=== PATIENT | female | born 1940 | race Caucasian/White ===

== ENCOUNTER 2017-01-26 09:45 | Outpatient (CLI) | payer MEDICARE, MEDICAID | END 2017-01-26 09:46 | disposition home or self-care (01) | DX: M54.5 Low back pain (principal); Z89.519 Acquired absence of unspecified leg below knee | CPT/HCPCS: 80307; G0480 ==

== ENCOUNTER 2017-09-30 08:00 | Outpatient (CLI) | payer MEDICARE, MEDICAID ==
[2017-10-03 22:06] LABS: AMPHETAMINES NEGATIVE ng/mL (< 500); BARBITURATES NEGATIVE ng/mL (< 300); BENZODIAZEPINES NEGATIVE ng/mL (< 100); CREATININE 50.6 mg/dL (>= 20.0); MARIJUANA METABOLITE NEGATIVE ng/mL (< 20); MEDMATCH AMPHETAMINES CONSISTENT (-); MEDMATCH BARBITURATES CONSISTENT (-); MEDMATCH BENZODIAZEPINES CONSISTENT (-); MEDMATCH COCAINE METAB CONSISTENT (-); MEDMATCH CODEINE CONSISTENT (-); MEDMATCH HYDROCODONE CONSISTENT; MEDMATCH HYDROMORPHONE CONSISTENT; MEDMATCH MARIJUANA METAB CONSISTENT (-); MEDMATCH METHADONE METAB CONSISTENT (-); MEDMATCH MORPHINE CONSISTENT (-); MEDMATCH NORHYDROCODONE CONSISTENT; MEDMATCH OXYCODONE CONSISTENT (-); MEDMATCH PHENCYCLIDINE CONSISTENT (-); METHADONE METABOLITE NEGATIVE ng/mL (< 100); NORHYDROCODONE 511 ng/mL (< 50); OPIATES POSITIVE ng/mL (< 100); OXIDANT Negative mcg/mL (< 200); PHENCYCLIDINE NEGATIVE ng/mL (< 25); PRESCRIBED DRUG 1 Hydrocodone
== END 2017-09-30 08:01 | disposition home or self-care (01) ==
LOC: LAB.R 08:00
PROVIDERS: ATTEND Nurse Practitioner Family
DX: Z79.891 Long term (current) use of opiate analgesic (principal); Z89.519 Acquired absence of unspecified leg below knee; G89.21 Chronic pain due to trauma; M54.5 Low back pain
CPT/HCPCS: 80307

== ENCOUNTER 2018-02-25 12:30 | Outpatient (CLI) | payer MEDICARE, MEDICAID ==
[2018-02-25 17:43] LABS: MUDS CUTOFF CONCENTRATIONS CUTOFF CONC BELOW:
[2018-02-25 18:09] LABS: OPIATE SCREEN, URINE POSITIVE (NEGATIVE)
[2018-02-25 18:10] LABS: AMPHETAMINE SCREEN,URINE NEGATIVE (NEGATIVE); BENZODIAZEPINES SCREEN, URINE NEGATIVE (NEGATIVE); COCAINE SCREEN URINE NEGATIVE (NEGATIVE); METHADONE SCREEN, URINE NEGATIVE (NEGATIVE); METHAMPHETAMINES SCREEN, URINE NEGATIVE (NEGATIVE); OXYCODONE SCREEN, URINE NEGATIVE (NEGATIVE); PROPOXYPHENE SCREEN, URINE NEGATIVE (NEGATIVE); TRICYCLIC ANTIDEPRESSANT,URINE POSITIVE (NEGATIVE)
== END 2018-02-25 12:31 | disposition home or self-care (01) ==
LOC: LAB.R 12:30
PROVIDERS: ATTEND Nurse Practitioner Family
DX: M54.5 Low back pain (principal)
CPT/HCPCS: 80306

== ENCOUNTER 2018-09-23 12:39 | Outpatient (CLI) | payer MEDICARE, MEDICAID | END 2018-09-23 12:40 | disposition critical access hospital (66) | LOC: EMS 12:39 | PROVIDERS: ATTEND Surgery | DX: R32 Unspecified urinary incontinence (principal); R41.0 Disorientation, unspecified; R10.9 Unspecified abdominal pain; M25.522 Pain in left elbow; R06.02 Shortness of breath | CPT/HCPCS: A0425; A0429 ==

== ENCOUNTER 2018-09-23 13:14 | Inpatient (IN) | payer MEDICARE, MEDICAID ==
[2018-09-23] MEDS ORDERED: cefTRIAXone 1 GM in SODIUM CHLORIDE 0.9% MINIBAG 100 ML IV STA (13:50)
[2018-09-23 14:14] LABS: BASOPHILS % (AUTO) 0.4 %; EOSINOPHILS # (AUTO) 0.2 10^3/uL (0.0-0.7); HGB - HEMOGLOBIN 10.8 g/dL (12.0-16.0); LYMPHOCYTES # (AUTO) 0.8 10^3/uL (1.5-3.5); LYMPHOCYTES % (AUTO) 7.9 %; MEAN CORPUSCULAR HGB CONC 33.8 g/dL (32.0-36.0); MEAN CORPUSCULAR VOLUME 88.9 fL (81.0-99.0); MEAN PLATELET VOLUME 9.1 fL (7.9-10.8); MONOCYTES # (AUTO) 0.8 10^3/uL (0.0-1.0); MONOCYTES % (AUTO) 7.9 %; NEUTROPHILS # (AUTO) 8.2 10^3/uL (1.5-6.6); NEUTROPHILS % (AUTO) 81.8 %; PLT - PLATELET COUNT 168 10^3/uL (130-450); RED CELL DISTRIBUTION WIDTH 15.6 % (12.0-15.0)
[2018-09-23 14:27] LABS: ALBUMIN 3.3 g/dL (3.2-5.5); ALBUMIN/GLOBULIN RATIO 1.1 (1.0-2.2); BILIRUBIN,TOTAL 0.9 mg/dL (0.2-1.0); CALCIUM 8.2 mg/dL (8.5-10.3); CREATININE 0.6 mg/dL (0.4-1.0); TOTAL PROTEIN 6.2 g/dL (6.7-8.2)
[2018-09-23 15:01] LABS: BILIRUBIN,URINE NEGATIVE (NEGATIVE); GLUCOSE, URINE (UA) NEGATIVE (NEGATIVE); KETONES,URINE (UA) 15 mg/dL (NEGATIVE); LEUKOCYTE ESTERASE, URINE MODERATE (NEGATIVE); NITRITE,URINE NEGATIVE (NEGATIVE); OCCULT BLOOD,URINE TRACE-INTA (NEGATIVE); PROTEIN,URINE TRACE mg/dL (NEGATIVE); UROBILINOGEN,URINE 1 (NORMAL) E.U./dL (NORMAL)
[2018-09-23 15:02] LABS: CLARITY,URINE HAZY (CLEAR)
[2018-09-23 15:16] LABS: BACTERIA,URINE Few /HPF (None Seen); MUCUS,URINE Few Strands; RBC,URINE 0-5 /HPF (0-5); SQUAMOUS EPITHELIAL CELL,UR MANY Squamous (<= Few)
[2018-09-23] MEDS ORDERED: NITROFURANTOIN MACRO 100 MG CAPSULE PO STA (16:19)
[2018-09-23] MEDS ORDERED: PHENAZOPYRIDINE 100 MG TABLET PO STA (16:19)
--- NOTE | 2018-09-23 16:36 | ED Physician Documentation ---
History of Present Illness - Stated complaint Stated Complaint: FEMALE - Chief complaint Chief Complaint: General - History obtained from History obtained from: Patient, Family (sister) - Additonal information Additional information: The patient is a 78-year-old female who arrives via ambulance after experiencing incontinence of urine today. The patient lives with her sister, who states that the patient has also been mentally confused today. She is normally cognitively clear. She has had no vomiting, diarrhea, fever, and denies dysuria. She denies chest pain, cough, or shortness of breath. 5 days ago the patient slipped on the floor impacting her left elbow. She had an abrasion on her left elbow, and there was swelling and ecchymosis. Yesterday she began experiencing increased redness and pain, which is even worse today. Review of Systems Constitutional: denies: Fever Ears: denies: Tinnitus/ringing Nose: denies: Congestion Throat: denies: Sore throat Cardiac: denies: Chest pain / pressure Respiratory: denies: Dyspnea, Cough GI: denies: Abdominal Pain, Nausea, Vomiting : reports: Incontinent. denies: Dysuria Skin: reports: Abrasion (s) (left elbow) Musculoskeletal: reports: Extremity pain (left upper extremity) Neurologic: reports: Generalized weakness, Confused. denies: Focal weakness, Numbness, Headache PD PAST MEDICAL HISTORY - Past Medical History Past Medical History: Yes Cardiovascular: None Respiratory: Pneumonia Endocrine/Autoimmune: None GI: GERD, GI bleed, Ulcers : Kidney stones Psych: Depression Musculoskeletal: Chronic back pain Derm: Rosacea - Past Surgical History Past Surgical History: Yes General: Cholecystectomy, Colonoscopy, EGD Ortho: Spine surgery - Present Medications Home Medications: Ambulatory Orders Medication Instructions Recorded Confirmed Amitriptyline [Elavil] 100 mg PO TID 05/18/16 05/19/16 Hydrocodone/Acetaminophen 1 tab PO Q4HR PRN 05/18/16 05/18/16 [Hydrocodon-Acetaminophn 10-325] Triamcinolone Acetonide [Nasacort] 1 spray TAYLER BID 05/18/16 05/18/16 raNITIdine [Zantac] 300 mg PO BID 05/19/16 05/19/16 traZODone [Desyrel] 150 mg PO HS 05/19/16 05/19/16 Esomeprazole Magnesium [Nexium] 40 mg PO DAILY #14 capsule. 06/07/16 Ondansetron Odt [Zofran] 4 mg TL Q6H PRN #10 tablet 06/07/16 Sucralfate 1 gm PO ACHS #60 tablet 06/07/16 - Allergies Allergies/Adverse Reactions: Allergies Allergy/AdvReac Type Severity Reaction Status Date / Time No Known Drug Allergies Allergy Verified 09/23/18 13:34 - Social History Does the pt smoke?: No Smoking Status: Never smoker Does the pt drink ETOH?: No Does the pt have substance abuse?: No - Immunizations Immunizations are current?: Yes PD ED PE NORMAL - Vitals Vital signs reviewed: Yes (hypertensive) - General General: Well developed/nourished, Other (Alert, but confused. She has vague symptoms of delirium, expressing concern that the letters on the medical glove boxes have some connection with the beeping sound on the monitor.) - HEENT HEENT: Atraumatic, EOMI, Pharynx benign, Other (Dry buccal mucosa.) - Neck Neck: Supple, no meningeal sign, No adenopathy, No JVD - Cardiac Cardiac: RRR, No murmur - Respiratory Respiratory: No respiratory distress, Clear bilaterally - Abdomen Abdomen: Soft, Other (Mild suprapubic tenderness to palpation, without rebound or guarding.) - Back Back: No CVA TTP - Derm Derm: No rash - Extremities Extremities: Other (There is erythema of the left upper extremity extending from above the elbow, distally to the distal forearm. It is warm to touch, and tender to palpation. There is superficial abrasion on the extensor aspect of the elbow. Distal neurovascular is intact.) - Neuro Neuro: No motor deficit, No sensory deficit, Other (Alert, oriented x2, mentally confused.) Eye Opening: Spontaneous Motor: Obeys Commands Verbal: Confused GCS Score: 14 Results - Vitals Vitals: Vital Signs - 24 hr 09/23/18 13:26 Temperature 36.0 C L Heart Rate 89 Respiratory 26 H Rate Blood Pressure 160/103 H O2 Saturation 100 Oxygen O2 Source [With Activity] Nasal cannula O2 Source [Without Activity] Nasal cannula O2 Source Room air - Labs Labs: Laboratory Tests 09/23/18 09/23/18 09/23/18 14:00 14:00 14:00 WBC 10.0 RBC 3.60 L Hgb 10.8 L Hct 32.0 L MCV 88.9 MCH 30.0 MCHC 33.8 RDW 15.6 H Plt Count 168 MPV 9.1 Neut # (Auto) 8.2 H Lymph # (Auto) 0.8 L [place] # (Auto) 0.8 Eos # (Auto) 0.2 Baso # (Auto) 0.0 Absolute Nucleated RBC 0.00 Nucleated RBC % 0.0 Sodium 139 Potassium 4.3 Chloride 108 Carbon Dioxide 27 Anion Gap 4.0 L BUN 20 Creatinine 0.6 Estimated GFR (MDRD) 97 Glucose 95 Lactic Acid 0.7 Calcium 8.2 L Total Bilirubin 0.9 AST 23 ALT 18 Alkaline Phosphatase 63 Total Protein 6.2 L Albumin 3.3 Globulin 2.9 Albumin/Globulin Ratio 1.1 Lipase 18 L Urine Color Urine Clarity Urine pH Ur Specific [place] Urine Protein Urine Glucose (UA) Urine Ketones Urine Occult Blood Urine Nitrite Urine Bilirubin Urine Urobilinogen Ur Leukocyte Esterase Urine RBC Urine WBC Ur Squamous Epith Cells Urine Bacteria Urine Mucus Ur Microscopic Review Urine Culture Comments 09/23/18 14:12 WBC RBC Hgb Hct MCV MCH MCHC RDW Plt Count MPV Neut # (Auto) Lymph # (Auto) [place] # (Auto) Eos # (Auto) Baso # (Auto) Absolute Nucleated RBC Nucleated RBC % Sodium Potassium Chloride Carbon Dioxide Anion Gap BUN Creatinine Estimated GFR (MDRD) Glucose Lactic Acid Calcium Total Bilirubin AST ALT Alkaline Phosphatase Total Protein Albumin Globulin Albumin/Globulin Ratio Lipase Urine Color YELLOW Urine Clarity HAZY Urine pH 6.0 Ur Specific [place] >=1.030 H Urine Protein TRACE Urine Glucose (UA) NEGATIVE Urine Ketones 15 H Urine Occult Blood TRACE-INTA Urine Nitrite NEGATIVE Urine Bilirubin NEGATIVE Urine Urobilinogen 1 (NORMAL) Ur Leukocyte Esterase MODERATE H Urine RBC 0-5 Urine WBC 11-25 H Ur Squamous Epith Cells MANY Squamous H Urine Bacteria Few Urine Mucus Few Strands Ur Microscopic Review INDICATED Urine Culture Comments NOT INDICATED PD MEDICAL DECISION MAKING - ED course Complexity details: reviewed old records, reviewed results, re-evaluated patient, considered differential, d/w patient, d/w family, d/w international travel consultant ED course: The patient's presentation is significant for cellulitis of the left upper extremity, urinary tract infection, and mental confusion. I suspect the confusion is related to the infection. She does not appear septic, and her lactate level is 0.7 and her white count is normal at 10.0. Treatment in the emergency department included administration of ceftriaxone 1 g IV. I discussed her condition with Dr. Kidd, who accepts her for further evaluation and treatment. Departure - Departure Disposition: ED Place in Observation Clinical Impression: Cellulitis Qualifiers: Site of cellulitis: extremity Site of cellulitis of extremity: upper extremity Laterality: left Qualified Code(s): L03.114 - Cellulitis of left upper limb UTI (urinary tract infection) Qualifiers: Urinary tract infection type: acute cystitis Hematuria presence: without hematuria Qualified Code(s): N30.00 - Acute cystitis without hematuria Altered mental state Qualifiers: Altered mental status type: unspecified Qualified Code(s): R41.82 - Altered mental status, unspecified
[2018-09-23] MEDS ORDERED: SODIUM CHLORIDE 0.9% 1,000 ML IV ONE (16:50)
[2018-09-23] MEDS ORDERED: SODIUM CHLORIDE FLUSH 0.9% 10 ML SYRINGE IVP PRN (17:06)
--- NOTE | 2018-09-23 18:10 | CT Report ---
Reason: New confusion Procedure Date: 09/23/2018 Accession Number: [id number] / [id number] Procedure: CT - Head W/O CPT Code: FULL RESULT: EXAM: CT HEAD EXAM DATE: 09/23/2018 05:49 PM. CLINICAL HISTORY: New confusion. COMPARISON: HEAD W/O 05/17/2016 6:54 PM. TECHNIQUE: Multiaxial CT images were obtained from the foramen magnum to the vertex. Reformats: Sagittal and coronal. IV contrast: None. In accordance with CT protocol optimization, one or more of the following dose reduction techniques were utilized for this exam: automated exposure control, adjustment of mA and/or KV based on patient size, or use of iterative reconstructive technique. FINDINGS: Parenchyma: No intraparenchymal hemorrhage. No evidence of mass, midline shift, or CT findings of infarction. Noonan-white differentiation is distinct. Extraaxial Spaces: No subdural or epidural collections identified. Ventricles: Normal in size and position. Sinuses and Orbits: There is a trace amount of fluid in the left sphenoid sinus. Other sinuses appear clear. Bones: No evidence of fracture or calvarial defect. Other: None. IMPRESSION: Negative for an acute or focal intracranial abnormality. Trace fluid in left sphenoid sinus. RADIA
[2018-09-23] MEDS: LACTATED RINGERS 1,000 ML IV SCH (19:17)
[2018-09-23] MEDS: PREGABALIN 100 MG CAPSULE PO SCH (19:20)
[2018-09-23] MEDS: PREGABALIN 25 MG CAPSULE PO SCH (19:20)
[2018-09-23] MEDS: FAMOTIDINE 20 MG/50 ML 50 ML IV SCH (20:55)
--- NOTE | 2018-09-23 20:56 | HISTORY & PHYSICAL EXAMINATION ---
DATE OF SERVICE: 09/23/2018 Physician: Poly Kidd MD HISTORY OF PRESENT ILLNESS: This is a 78-year-old white female with a history of chronic pain, for which she is on Elavil, Tylenol with codeine, Lyrica. She also takes Seroquel and Desyrel for unknown diagnosis and takes iron gluconate. 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 The patient lives with her sister, is unmarried. The patient sustained a fall in her house 4 days ago, tripping over a rug and does not think that she had any syncope. Two days later, there started to be swelling of the left elbow radiating down to the left wrist and became so painful that she could not do activities of daily living, describes at one point being unable to support herself and "scooching on her buttocks to get onto the bathtub and being too weak to get up." She called for her sister who called 911. The patient was found to have cellulitis of the left forearm in the emergency room. Also the sister described that today, the patient is very confused. In fact, the patient admits that she cannot remember part of yesterday and today is only oriented to person as I speak to her. There has been no fever. There are no pulmonary symptoms. She denies nausea, vomiting or diarrhea, chest pain, palpitations or syncope. The patient did not seek medical attention for the trauma to the left elbow. MEDICATIONS: 1. Amitriptyline 100 mg daily. 2. Baclofen 10 mg t.i.d. 3. Iron 324 mg daily. 4. Tylenol with codeine p.r.n. daily. 5. Seroquel 25 mg every evening. 6. Trazodone 225 mg daily. 7. Triamcinolone ointment topically q.i.d. p.r.n. 8. Lyrica 150 mg t.i.d. ALLERGIES: NONE. SOCIAL HISTORY: The patient is a nonsmoker, drinks no alcohol and uses no illicit drugs. REVIEW OF SYSTEMS: A comprehensive review of systems was performed by asking the patient and chart review and the pertinent positives are listed in the HPI, the rest are negative. FAMILY HISTORY: No inherited diseases. PHYSICAL EXAMINATION GENERAL: White female who is fidgety, very focused on her right palm which she says is "burning." VITAL SIGNS: Blood pressure 160/103, pulse of 89 in sinus rhythm, afebrile, room air saturation 100%. HEENT: Reveals very dry oral mucosa and sunken orbits. NECK: Without JVD or carotid bruits. LUNGS: Clear. HERAT: Sounds normal. No murmur. ABDOMEN: Soft with decreased bowel sounds, nontender. No organomegaly. EXTREMITIES: No clubbing or cyanosis or left leg edema. The right lower leg is a prosthesis. The left arm has redness, swelling and tenderness from the elbow extending anteriorly down the entire forearm to the mid dorsal hand. She is able to bend her left wrist. The right palm is red but has no swelling or tenderness. NEUROLOGIC: She is oriented to self only, moving all extremities. LABORATORY AND IMAGING: Head CT showed no acute process such as hemorrhage, mass or stroke. She does have fluid in her sinuses. Sodium 139, potassium 4.3, BUN 20, creatinine 0.6. Lactic acid normal at 0.7. Liver tests normal. Lipase normal. White blood count 10 but she has a left shift, hemoglobin 10.8 with a normal MCV, normal platelet count of 168. Urinalysis showed specific gravity greater than 1.030, high ketones, moderate leukocyte esterase, many squamous cells and few bacteria. Chest x-ray and elbow XRay were not done. INR was not done. EKG was not done. IMPRESSION: 1. Altered mental status. 2. Cellulitis. 3. Possible urinary tract infection. 4. Hypertension. PLAN: Place the patient to Observation status on telemetry. Obtain a head CT, this has now be done as she was coming over from the ER. Stop her sedatives in case they are adding to the confusion. Begin IV hydration and treatment of the infection. Culture her urine. Rocephin was started in the ER. She will have blood cultures and then daily Rocephin IV. Treat the arm with ice wraps and elevation. Continue with treatment for pain control. Follow her CBC and BMP daily. CODE STATUS: DNR. PROPHYLAXIS: SCDs. ATTESTATION: The patient is expected to be discharged or transferred to another facility within 96 hours: Yes. TD: 09/23/2018 19:10 [facility]
[2018-09-24 01:27] LABS: BILIRUBIN,URINE NEGATIVE (NEGATIVE); GLUCOSE, URINE (UA) NEGATIVE (NEGATIVE); KETONES,URINE (UA) 40 mg/dL (NEGATIVE); LEUKOCYTE ESTERASE, URINE NEGATIVE (NEGATIVE); NITRITE,URINE NEGATIVE (NEGATIVE); OCCULT BLOOD,URINE NEGATIVE (NEGATIVE); PH,URINE 6.5 PH (5.0-7.5); PROTEIN,URINE NEGATIVE (NEGATIVE); UROBILINOGEN,URINE 1 (NORMAL) E.U./dL (NORMAL)
[2018-09-24 01:29] LABS: CLARITY,URINE CLEAR (CLEAR)
[2018-09-24] MEDS ORDERED: HYDROcod/ACETAM 5/325 MG TABLET PO PRN (02:20)
[2018-09-24] MEDS: KETOROLAC 15 MG/ML VIAL IVP PRN ×3 (03:01→15:27)
[2018-09-24] MEDS: SODIUM CHLORIDE FLUSH 0.9% 10 ML SYRINGE IVP SCH ×3 (03:41→15:30)
[2018-09-24] MEDS: ACETAMINOPHEN 500 MG TABLET PO PRN ×2 (04:41→08:25)
[2018-09-24 05:28] LABS: BASOPHILS # (AUTO) 0.1 10^3/uL (0.0-0.1); BASOPHILS % (AUTO) 0.7 %; EOSINOPHILS # (AUTO) 0.2 10^3/uL (0.0-0.7); EOSINOPHILS % (AUTO) 2.8 %; HGB - HEMOGLOBIN 11.1 g/dL (12.0-16.0); LYMPHOCYTES # (AUTO) 1.2 10^3/uL (1.5-3.5); LYMPHOCYTES % (AUTO) 15.1 %; MEAN CORPUSCULAR HEMOGLOBIN 30.1 pg (27.0-31.0); MEAN CORPUSCULAR HGB CONC 33.8 g/dL (32.0-36.0); MEAN CORPUSCULAR VOLUME 88.9 fL (81.0-99.0); MEAN PLATELET VOLUME 8.9 fL (7.9-10.8); MONOCYTES # (AUTO) 0.8 10^3/uL (0.0-1.0); MONOCYTES % (AUTO) 10.4 %; NEUTROPHILS # (AUTO) 5.7 10^3/uL (1.5-6.6); PLT - PLATELET COUNT 181 10^3/uL (130-450); RED BLOOD COUNT 3.68 10^6/uL (4.20-5.40); RED CELL DISTRIBUTION WIDTH 15.3 % (12.0-15.0); WHITE BLOOD COUNT 8.1 x10^3/uL (4.8-10.8)
[2018-09-24] MEDS: PREGABALIN 25 MG CAPSULE PO SCH ×3 (05:35→21:19)
[2018-09-24] MEDS: PREGABALIN 100 MG CAPSULE PO SCH ×3 (05:35→21:19)
[2018-09-24] MEDS: LACTATED RINGERS 1,000 ML IV SCH ×2 (05:37→16:40)
[2018-09-24 05:44] LABS: CALCIUM 8.9 mg/dL (8.5-10.3); CREATININE 0.7 mg/dL (0.4-1.0)
[2018-09-24] MEDS: FAMOTIDINE 20 MG/50 ML 50 ML IV SCH ×2 (08:25→21:18)
[2018-09-24] MEDS: POLYETHYLENE GLYCOL 3350 17 GM PACKET PO SCH (08:25)
[2018-09-24] MEDS ORDERED: SODIUM CHLORIDE FLUSH 0.9% 10 ML SYRINGE ONE (14:03)
[2018-09-24] MEDS ORDERED: cefTRIAXone 1 GM VIAL ONE (14:03)
[2018-09-24] MEDS: cefTRIAXone 1 GM in SODIUM CHLORIDE 0.9% MINIBAG 100 ML IV SCH (14:20)
--- NOTE | 2018-09-24 14:38 | XRAY Report ---
Reason: Fall on L elbow sev days ago w/swelling laceration Procedure Date: 09/24/2018 Accession Number: [id number] / [id number] Procedure: XR - Elbow 3 View LT CPT Code: FULL RESULT: EXAM: LEFT ELBOW RADIOGRAPHY EXAM DATE: 09/24/2018 01:53 PM. CLINICAL HISTORY: Fall on L elbow days ago w/swelling laceration. COMPARISON: None available. TECHNIQUE: 3 views. FINDINGS: Bones: No acute fracture or dislocation. Joints: No joint effusion. Joint spaces are intact. Soft Tissues: Generalized soft tissue subcutaneous swelling IMPRESSION: No acute fracture or dislocation visualized. RADIA
--- NOTE | 2018-09-24 14:55 | PROVIDER PROGRESS NOTE ---
Assessment/Plan - Problem List (1) Altered mental state Qualifiers: Altered mental status type: unspecified Qualified Code(s): R41.82 - Altered mental status, unspecified Assessment/Plan: Pt still fatigued. Cannot remember details of past few days. Social Work has tried to reach the sister, with whom the patient lives, but there is no answer and voice messages were left. AMS is probably multi-factorial: from dehydration and infections. Continue iv fluid hydration and treatment of infections with iv antibiotics. Will start PT tomorrow if her mental status has cleared . (2) Cellulitis Qualifiers: Site of cellulitis: extremity Site of cellulitis of extremity: upper extrem ity Laterality: left Qualified Code(s): L03.114 - Cellulitis of left upper limb Assessment/Plan: Elbow appears less inflammed. Continue antibiotics and local symptomatic care. (3) UTI (urinary tract infection) Qualifiers: Urinary tract infection type: acute cystitis Hematuria presence: without hematuria Qualified Code(s): N30.00 - Acute cystitis without hematuria Assessment/Plan: Continue empiric iv antibiotics. (4) Hypokalemia Assessment/Plan: Resolving with replacement. I suspect poor po intake was the cause. (5) Dehydration Assessment/Plan: Continue iv hydration and start to encourage po intake and advancement of diet. - Current Meds Current Meds: Current Medications Generic Name Dose Route Start Last Admin Trade Name Freq PRN Reason Stop Dose Admin Acetaminophen 500 mg 09/24/18 02:18 09/24/18 08:25 Tylenol PO 500 mg Q4HR PRN Administration Mild Pain/ Fever>38C(100.4F) Famotidine 50 mls @ 100 mls/hr 09/23/18 21:00 09/24/18 09:00 Pepcid 20 Mg/50 Ml IV Infused BID DIEGO Infusion Lactated Ringer's 1,000 mls @ 100 mls/hr 09/23/18 18:00 09/24/18 14:20 Lr IV 0 mls/hr .Q10H DIEGO Infusion Ceftriaxone Sodium 1 gm/ 100 mls @ 200 mls/hr 09/24/18 14:00 09/24/18 14:20 Sodium Chloride IV 200 mls/hr Q24H DIEGO Administration Ketorolac Tromethamine 15 mg 09/24/18 02:19 09/24/18 08:26 Toradol Inj (15mg) IVP 09/29/18 02:18 15 mg Q6HR PRN Administration Moderate PAIN Polyethylene Glycol 17 gm 09/24/18 09:00 09/24/18 08:25 Miralax PO Not Given DAILY DIEGO Pregabalin 100 mg 09/23/18 19:00 09/24/18 14:20 Lyrica PO Not Given TID DIEGO Pregabalin 50 mg 09/23/18 19:00 09/24/18 14:20 Lyrica PO Not Given TID DIEGO Sodium Chloride 10 ml 09/24/18 01:00 09/24/18 07:22 Normal Saline Flush 0.9% IVP Not Given 0100,0900,1700 DEIGO - Lab Result Fish Bone Diagrams: 09/26/18 06:30 09/26/18 06:30 - Additional Planning My Orders: My Active Orders 09/23/18 17:06 Activity Orders [RC] Routine IO [RC] IOSHIFT Initiate Bowel Care Protocol [RC] .protocol Initiate Line Care Protocol [RC] .protocol Initiate Line Care Protocol [RC] .protocol Initiate Personal Care Protoco [RC] .protocol Oxygen Therapy [RC] Routine Telemetry (24 Hour) [RC] Q4HR Vital Signs [RC] Q4HR Sodium Chloride Flush 0.9% [Normal Saline Flush 0.9%] 10 ml IVP PRN PRN Code Status [OTHERS] Routine Condition of Patient [OTHERS] Routine DVT Prophylaxis [OTHERS] Routine 09/23/18 17:09 IV Insert [RC] .ONCE 09/23/18 17:30 CULTURE, BLOOD #1 [RM] Stat 09/23/18 18:00 Lactated Ringers [Lr] 1,000 ml IV 100 mls/hr 09/23/18 19:00 Pregabalin [Lyrica] 100 mg PO TID Pregabalin [Lyrica] 50 mg PO TID 09/23/18 21:00 Famotidine 20 mg/50 ml [Pepcid 20 mg/50 ml] 50 ml IV BID 09/24/18 Evaluate and Treat OT [OT] Routine Evaluate and Treat PT [PT] Routine 09/24/18 01:00 Sodium Chloride Flush 0.9% [Normal Saline Flush 0.9%] 10 ml IVP 0100,0900,1700 09/24/18 09:00 Polyethylene Glycol 3350 [Miralax] 17 gm PO DAILY 09/24/18 14:00 cefTRIAXone [Rocephin] 1 gm Sodium Chloride 0.9% Minibag [Normal Saline 0.9% Minibag] 100 ml IV Q24H 09/24/18 Lunch DIET [Soft (Low Fiber) Diet] [DIET] 09/25/18 05:00 BMP - BASIC METABOLIC PANEL [CHEM] DAILYLAB CBC - COMP BLD CT W/AUTO DIFF [HEME] DAILYLAB Subjective - Subjective Patient Reports: Feeling Better, Other (No appetite. Cannot remember details from the past 2 days.) Objective Vital Signs: Vital Signs - 24 hr 09/23/18 09/23/18 09/23/18 15:00 16:30 18:36 Temperature 36.6 C Heart Rate 76 97 Heart Rate [ 94 Radial] Respiratory 14 14 20 Rate Blood Pressure 123/106 H 125/71 Blood Pressure 154/71 H [Right Arm] O2 Saturation 93 92 96 09/24/18 09/24/18 09/24/18 00:00 05:36 07:46 Temperature 36.8 C 36.3 C L 36.3 C L Heart Rate Heart Rate [ 89 84 81 Radial] Respiratory 18 18 18 Rate Blood Pressure Blood Pressure 136/90 H 114/84 H 135/78 H [Right Arm] O2 Saturation 97 99 98 09/24/18 13:00 Temperature 36.5 C Heart Rate Heart Rate [ 93 Radial] Respiratory 15 Rate Blood Pressure Blood Pressure 163/77 H [Right Arm] O2 Saturation 98 Oxygen O2 Source [With Activity] Nasal cannula O2 Source [Without Activity] Nasal cannula O2 Source Nasal cannula I&O (Last 24 Hrs): Intake and Output Totals x24h 09/22/18 09/23/18 09/24/18 23:59 23:59 23:59 Intake Total 250 1971.667 Output Total 1400 Balance 250 571.667 General: Alert, Oriented x3 HEENT: Other (Dry mucosa) Neck: Supple, No JVD Neuro: Non Focal Cardiovascular: Regular rate, No murmurs Respiratory: No respiratory distress, Breath sounds nml Abdomen: Normal bowel sounds, No tenderness Extremities: Other (Left leg has a BKA. Left elbow less swollen and less tender.) - Results Results: Laboratory Results WBC 8.1 x10^3/uL (4.8-10.8) 09/24/18 05:09 RBC 3.68 10^6/uL (4.20-5.40) L 09/24/18 05:09 Hgb 11.1 g/dL (12.0-16.0) L 09/24/18 05:09 Hct 32.7 % (37.0-47.0) L 09/24/18 05:09 MCV 88.9 fL (81.0-99.0) 09/24/18 05:09 MCH 30.1 pg (27.0-31.0) 09/24/18 05:09 MCHC 33.8 g/dL (32.0-36.0) 09/24/18 05:09 RDW 15.3 % (12.0-15.0) H 09/24/18 05:09 Plt Count 181 10^3/uL (130-450) 09/24/18 05:09 MPV 8.9 fL (7.9-10.8) 09/24/18 05:09 Neut # (Auto) 5.7 10^3/uL (1.5-6.6) 09/24/18 05:09 Lymph # (Auto) 1.2 10^3/uL (1.5-3.5) L 09/24/18 05:09 [place] # (Auto) 0.8 10^3/uL (0.0-1.0) 09/24/18 05:09 Eos # (Auto) 0.2 10^3/uL (0.0-0.7) 09/24/18 05:09 Baso # (Auto) 0.1 10^3/uL (0.0-0.1) 09/24/18 05:09 Absolute Nucleated RBC 0.00 x10^3/uL 09/24/18 05:09 Nucleated RBC % 0.0 /100WBC 09/24/18 05:09 Sodium 138 mmol/L (135-145) 09/24/18 05:09 Potassium 3.4 mmol/L (3.5-5.0) L 09/24/18 05:09 Chloride 106 mmol/L (101-111) 09/24/18 05:09 Carbon Dioxide 22 mmol/L (21-32) 09/24/18 05:09 Anion Gap 10.0 (6-13) 09/24/18 05:09 BUN 16 mg/dL (6-20) 09/24/18 05:09 Creatinine 0.7 mg/dL (0.4-1.0) 09/24/18 05:09 Estimated GFR (MDRD) 81 (>89) L 09/24/18 05:09 Glucose 87 mg/dL (70-100) 09/24/18 05:09 Lactic Acid 0.7 mmol/L (0.5-2.2) 09/23/18 14:00 Calcium 8.9 mg/dL (8.5-10.3) 09/24/18 05:09 Total Bilirubin 0.9 mg/dL (0.2-1.0) 09/23/18 14:00 AST 23 IU/L (10-42) 09/23/18 14:00 ALT 18 IU/L (10-60) 09/23/18 14:00 Alkaline Phosphatase 63 IU/L (42-121) 09/23/18 14:00 Total Protein 6.2 g/dL (6.7-8.2) L 09/23/18 14:00 Albumin 3.3 g/dL (3.2-5.5) 09/23/18 14:00 Globulin 2.9 g/dL (2.1-4.2) 09/23/18 14:00 Albumin/Globulin Ratio 1.1 (1.0-2.2) 09/23/18 14:00 Lipase 18 U/L (22-51) L 09/23/18 14:00 Urine Color YELLOW 09/24/18 01:10 Urine Clarity CLEAR (CLEAR) 09/24/18 01:10 Urine pH 6.5 PH (5.0-7.5) 09/24/18 01:10 Ur Specific [place] 1.025 (1.002-1.030) 09/24/18 01:10 Urine Protein NEGATIVE mg/dL (NEGATIVE) 09/24/18 01:10 Urine Glucose (UA) NEGATIVE mg/dL (NEGATIVE) 09/24/18 01:10 Urine Ketones 40 mg/dL (NEGATIVE) H 09/24/18 01:10 Urine Occult Blood NEGATIVE (NEGATIVE) 09/24/18 01:10 Urine Nitrite NEGATIVE (NEGATIVE) 09/24/18 01:10 Urine Bilirubin NEGATIVE (NEGATIVE) 09/24/18 01:10 Urine Urobilinogen 1 (NORMAL) E.U./dL (NORMAL) 09/24/18 01:10 Ur Leukocyte Esterase NEGATIVE (NEGATIVE) 09/24/18 01:10 Urine RBC 0-5 /HPF (0-5) 09/23/18 14:12 Urine WBC 11-25 /HPF (0-5) H 09/23/18 14:12 Ur Squamous Epith Cells MANY Squamous (<= Few) H 09/23/18 14:12 Urine Bacteria Few /HPF (None Seen) 09/23/18 14:12 Urine Mucus Few Strands 09/23/18 14:12 Ur Microscopic Review NOT INDICATED 09/24/18 01:10 Urine Culture Comments NOT INDICATED 09/24/18 01:10 - Procedures Procedures: Procedures TRANSFUSE NONAUT RED BLOOD CELLS IN PERIPH VEIN, PERC (05/17/16) ABX Reporting Has patient been on IV antibiotics over the past 48 hours?: Yes
[2018-09-24] MEDS ORDERED: cefTRIAXone 1 GM VIAL IVP SCH (15:00)
[2018-09-24] MEDS ORDERED: POTASSIUM CHLOR 10 MEQ/100 ML 10 MEQ/100 ML BAG IV ONE (16:00)
[2018-09-24] MEDS ORDERED: BACLOFEN 10 MG TABLET PO PRN (17:48)
[2018-09-24] MEDS: NAPROXEN 250 MG TABLET PO PRN (18:29)
[2018-09-25] MEDS: NAPROXEN 250 MG TABLET PO PRN (02:20)
[2018-09-25] MEDS: LACTATED RINGERS 1,000 ML IV SCH (02:21)
[2018-09-25] MEDS: SODIUM CHLORIDE FLUSH 0.9% 10 ML SYRINGE IVP SCH ×4 (02:28→22:15)
[2018-09-25] MEDS: PREGABALIN 25 MG CAPSULE PO SCH ×3 (06:01→22:15)
[2018-09-25] MEDS: PREGABALIN 100 MG CAPSULE PO SCH ×3 (06:01→22:15)
[2018-09-25 06:06] LABS: BASOPHILS % (AUTO) 0.5 %; EOSINOPHILS # (AUTO) 0.3 10^3/uL (0.0-0.7); EOSINOPHILS % (AUTO) 4.5 %; HGB - HEMOGLOBIN 11.3 g/dL (12.0-16.0); LYMPHOCYTES # (AUTO) 0.8 10^3/uL (1.5-3.5); LYMPHOCYTES % (AUTO) 10.7 %; MEAN CORPUSCULAR HGB CONC 33.3 g/dL (32.0-36.0); MEAN PLATELET VOLUME 9.2 fL (7.9-10.8); MONOCYTES # (AUTO) 0.6 10^3/uL (0.0-1.0); MONOCYTES % (AUTO) 8.1 %; NEUTROPHILS # (AUTO) 5.4 10^3/uL (1.5-6.6); NEUTROPHILS % (AUTO) 76.2 %; PLT - PLATELET COUNT 208 10^3/uL (130-450); RED BLOOD COUNT 3.78 10^6/uL (4.20-5.40); WHITE BLOOD COUNT 7.1 x10^3/uL (4.8-10.8)
[2018-09-25 06:23] LABS: CALCIUM 8.7 mg/dL (8.5-10.3); CREATININE 0.6 mg/dL (0.4-1.0)
[2018-09-25] MEDS: FAMOTIDINE 20 MG/50 ML 50 ML IV SCH ×2 (08:46→22:14)
[2018-09-25] MEDS: POLYETHYLENE GLYCOL 3350 17 GM PACKET PO SCH (08:46)
[2018-09-25] MEDS ORDERED: AMITRIPTYLINE 10 MG TABLET PO SCH (09:00)
[2018-09-25] MEDS ORDERED: POTASSIUM CHLOR 10 MEQ/100 ML 10 MEQ/100 ML BAG IV SCH (10:00)
[2018-09-25] MEDS ORDERED: POTASSIUM CHLORIDE 20 MEQ/15 ML UDC PO SCH (10:38)
--- NOTE | 2018-09-25 12:52 | PROVIDER PROGRESS NOTE ---
Assessment/Plan - Problem List (1) Pain of amputation stump of left lower extremity Assessment/Plan: She now recalls falling on L stump when she sis not have her prosthesis on. It was during the time she was confused and fell on her L elbow. Will MRI the stump (and add L elbow) to evaluate for osteomyelitis, as a cause of the severely altered mental status that was apparently present for several days, since the sister now tells me that she was "crazy for a while". The patient is planning on getting new padding made by her prosthetic device supplier (locally done). (2) Cellulitis Qualifiers: Site of cellulitis: extremity Site of cellulitis of extremity: upper extremity Laterality: left Qualified Code(s): L03.114 - Cellulitis of left upper limb Assessment/Plan: Improving. Continue antibiotics and local care. (3) UTI (urinary tract infection) Qualifiers: Urinary tract infection type: acute cystitis Hematuria presence: without hematuria Qualified Code(s): N30.00 - Acute cystitis without hematuria Assessment/Plan: Continue antibiotics. Will transition to po meds at discharge. (4) Hypokalemia Assessment/Plan: Resolved with replacement. (5) Dehydration Assessment/Plan: Resolved with aggressive iv hydration. She is taking a po diet and iv fluids to stop. (6) Altered mental state Qualifiers: Altered mental status type: unspecified Qualified Code(s): R41.82 - Altered mental status, unspecified Assessment/Plan: Resolved. - Current Meds Current Meds: Current Medications Generic Name Dose Route Start Last Admin Trade Name Freq PRN Reason Stop Dose Admin Acetaminophen 500 mg 09/24/18 02:18 09/24/18 08:25 Tylenol PO 500 mg Q4HR PRN Administration Mild Pain/ Fever>38C(100.4F) Baclofen 10 mg 09/24/18 17:48 09/25/18 06:38 Lioresal PO 10 mg TID PRN Administration MUSCLE SPASM Famotidine 50 mls @ 100 mls/hr 09/23/18 21:00 09/25/18 09:32 Pepcid 20 Mg/50 Ml IV Infused BID DIEGO Infusion Ceftriaxone Sodium 1 gm/ 100 mls @ 200 mls/hr 09/24/18 14:00 09/24/18 14:50 Sodium Chloride IV Infused Q24H DIEGO Infusion Ketorolac Tromethamine 15 mg 09/24/18 02:19 09/24/18 15:27 Toradol Inj (15mg) IVP 09/29/18 02:18 15 mg Q6HR PRN Administration Moderate PAIN Naproxen 250 mg 09/24/18 17:48 09/25/18 02:20 Naprosyn PO 250 mg TID PRN Administration PAIN Polyethylene Glycol 17 gm 09/24/18 09:00 09/25/18 08:46 Miralax PO Not Given DAILY DIEGO Pregabalin 100 mg 09/23/18 19:00 09/25/18 06:01 Lyrica PO 100 mg TID DIEGO Administration Pregabalin 50 mg 09/23/18 19:00 09/25/18 06:01 Lyrica PO 50 mg TID DIEGO Administration Sodium Chloride 10 ml 09/24/18 01:00 09/25/18 08:47 Normal Saline Flush 0.9% IVP Not Given 0100,0900,1700 DIEGO - Lab Result Fish Bone Diagrams: 09/26/18 06:30 09/26/18 06:30 - Additional Planning My Orders: My Active Orders 09/24/18 14:00 cefTRIAXone [Rocephin] 1 gm Sodium Chloride 0.9% Minibag [Normal Saline 0.9% Minibag] 100 ml IV Q24H 09/24/18 17:48 Baclofen [Lioresal] 10 mg PO TID PRN Naproxen [Naprosyn] 250 mg PO TID PRN 09/25/18 21:00 Amitriptyline [Elavil] 100 mg PO QPM 09/25/18 Lunch DIET [Vegetarian Diet] [DIET] 09/26/18 08:00 Lower Leg (Tib-Fib) RT W/WO [MRI] Routine Subjective - Subjective Patient Reports: Feeling Better, Other (Pain of L BKA stump.) Nursing Reports: Other (Pt does not want to put on her leg prosthesis to walk with PT, due to pain at stump.) Objective Vital Signs: Vital Signs - 24 hr 09/24/18 09/24/18 09/24/18 13:00 15:57 20:40 Temperature 36.5 C 36.5 C 36.3 C L Heart Rate [ 89 95 Brachial] Heart Rate [ 93 Radial] Respiratory 15 18 16 Rate Blood Pressure 163/77 H 145/72 H 157/79 H [Right Arm] O2 Saturation 98 99 100 09/24/18 09/25/18 23:09 06:30 Temperature 36.4 C L 36.3 C L Heart Rate [ 84 87 Brachial] Heart Rate [ Radial] Respiratory 18 17 Rate Blood Pressure 150/70 H 160/80 H [Right Arm] O2 Saturation 96 99 Oxygen O2 Source [With Activity] Nasal cannula O2 Source [Without Activity] Nasal cannula O2 Source Room air I&O (Last 24 Hrs): Intake and Output Totals x24h 09/23/18 09/24/18 09/25/18 23:59 23:59 23:59 Intake Total 250 2438.334 2326.333 Output Total 1400 Balance 250 7221.506 3148.333 General: Alert, Oriented x3 HEENT: Mucous membr. moist/pink Neck: Supple Neuro: Non Focal, Other (No longer confused, she is laughing and speaking with family members.) Cardiovascular: Regular rate, No murmurs Respiratory: No respiratory distress, Breath sounds nml Abdomen: Soft Extremities: Other (L stump has purple-red discoloration, minimal tenderness and no heat or swelling.) - Results Results: Laboratory Results WBC 7.1 x10^3/uL (4.8-10.8) 09/25/18 05:44 RBC 3.78 10^6/uL (4.20-5.40) L 09/25/18 05:44 Hgb 11.3 g/dL (12.0-16.0) L 09/25/18 05:44 Hct 34.0 % (37.0-47.0) L 09/25/18 05:44 MCV 90.0 fL (81.0-99.0) 09/25/18 05:44 MCH 30.0 pg (27.0-31.0) 09/25/18 05:44 MCHC 33.3 g/dL (32.0-36.0) 09/25/18 05:44 RDW 15.0 % (12.0-15.0) 09/25/18 05:44 Plt Count 208 10^3/uL (130-450) 09/25/18 05:44 MPV 9.2 fL (7.9-10.8) 09/25/18 05:44 Neut # (Auto) 5.4 10^3/uL (1.5-6.6) 09/25/18 05:44 Lymph # (Auto) 0.8 10^3/uL (1.5-3.5) L 09/25/18 05:44 [place] # (Auto) 0.6 10^3/uL (0.0-1.0) 09/25/18 05:44 Eos # (Auto) 0.3 10^3/uL (0.0-0.7) 09/25/18 05:44 Baso # (Auto) 0.0 10^3/uL (0.0-0.1) 09/25/18 05:44 Absolute Nucleated RBC 0.01 x10^3/uL 09/25/18 05:44 Nucleated RBC % 0.1 /100WBC 09/25/18 05:44 Sodium 138 mmol/L (135-145) 09/25/18 05:44 Potassium 3.4 mmol/L (3.5-5.0) L 09/25/18 05:44 Chloride 105 mmol/L (101-111) 09/25/18 05:44 Carbon Dioxide 21 mmol/L (21-32) 09/25/18 05:44 Anion Gap 12.0 (6-13) 09/25/18 05:44 BUN 13 mg/dL (6-20) 09/25/18 05:44 Creatinine 0.6 mg/dL (0.4-1.0) 09/25/18 05:44 Estimated GFR (MDRD) 97 (>89) 09/25/18 05:44 Glucose 80 mg/dL (70-100) 09/25/18 05:44 Lactic Acid 0.7 mmol/L (0.5-2.2) 09/23/18 14:00 Calcium 8.7 mg/dL (8.5-10.3) 09/25/18 05:44 Total Bilirubin 0.9 mg/dL (0.2-1.0) 09/23/18 14:00 AST 23 IU/L (10-42) 09/23/18 14:00 ALT 18 IU/L (10-60) 09/23/18 14:00 Alkaline Phosphatase 63 IU/L (42-121) 09/23/18 14:00 Total Protein 6.2 g/dL (6.7-8.2) L 09/23/18 14:00 Albumin 3.3 g/dL (3.2-5.5) 09/23/18 14:00 Globulin 2.9 g/dL (2.1-4.2) 09/23/18 14:00 Albumin/Globulin Ratio 1.1 (1.0-2.2) 09/23/18 14:00 Lipase 18 U/L (22-51) L 09/23/18 14:00 Urine Color YELLOW 09/24/18 01:10 Urine Clarity CLEAR (CLEAR) 09/24/18 01:10 Urine pH 6.5 PH (5.0-7.5) 09/24/18 01:10 Ur Specific [place] 1.025 (1.002-1.030) 09/24/18 01:10 Urine Protein NEGATIVE mg/dL (NEGATIVE) 09/24/18 01:10 Urine Glucose (UA) NEGATIVE mg/dL (NEGATIVE) 09/24/18 01:10 Urine Ketones 40 mg/dL (NEGATIVE) H 09/24/18 01:10 Urine Occult Blood NEGATIVE (NEGATIVE) 09/24/18 01:10 Urine Nitrite NEGATIVE (NEGATIVE) 09/24/18 01:10 Urine Bilirubin NEGATIVE (NEGATIVE) 09/24/18 01:10 Urine Urobilinogen 1 (NORMAL) E.U./dL (NORMAL) 09/24/18 01:10 Ur Leukocyte Esterase NEGATIVE (NEGATIVE) 09/24/18 01:10 Urine RBC 0-5 /HPF (0-5) 09/23/18 14:12 Urine WBC 11-25 /HPF (0-5) H 09/23/18 14:12 Ur Squamous Epith Cells MANY Squamous (<= Few) H 09/23/18 14:12 Urine Bacteria Few /HPF (None Seen) 09/23/18 14:12 Urine Mucus Few Strands 09/23/18 14:12 Ur Microscopic Review NOT INDICATED 09/24/18 01:10 Urine Culture Comments NOT INDICATED 09/24/18 01:10 - Procedures Procedures: Procedures TRANSFUSE NONAUT RED BLOOD CELLS IN PERIPH VEIN, PERC (05/17/16)
--- NOTE | 2018-09-25 14:18 | HISTORY & PHYSICAL EXAMINATION ---
DATE OF SERVICE: 09/23/2018 Physician: Poly Kidd MD ADDENDUM: Please note in the HPI and in the physical exam that the patient's BKA is on the left, not the right. In the physical exam, it should stay no clubbing or cyanosis of the right leg or edema. TD: 09/25/2018 12:58
[2018-09-25] MEDS: cefTRIAXone 1 GM in SODIUM CHLORIDE 0.9% MINIBAG 100 ML IV SCH (16:21)
[2018-09-25] MEDS ORDERED: AMITRIPTYLINE 25 MG TABLET PO SCH (21:00)
[2018-09-26] MEDS: PREGABALIN 25 MG CAPSULE PO SCH ×2 (06:19→14:25)
[2018-09-26] MEDS: PREGABALIN 100 MG CAPSULE PO SCH ×2 (06:19→14:25)
[2018-09-26 06:39] LABS: BASOPHILS % (AUTO) 0.8 %; EOSINOPHILS # (AUTO) 0.5 10^3/uL (0.0-0.7); EOSINOPHILS % (AUTO) 10.1 %; HGB - HEMOGLOBIN 11.4 g/dL (12.0-16.0); LYMPHOCYTES # (AUTO) 0.9 10^3/uL (1.5-3.5); LYMPHOCYTES % (AUTO) 20.4 %; MEAN CORPUSCULAR HEMOGLOBIN 29.2 pg (27.0-31.0); MEAN CORPUSCULAR VOLUME 88.6 fL (81.0-99.0); MEAN PLATELET VOLUME 8.2 fL (7.9-10.8); MONOCYTES # (AUTO) 0.5 10^3/uL (0.0-1.0); MONOCYTES % (AUTO) 11.6 %; NEUTROPHILS # (AUTO) 2.6 10^3/uL (1.5-6.6); NEUTROPHILS % (AUTO) 57.1 %; PLT - PLATELET COUNT 226 10^3/uL (130-450); RED BLOOD COUNT 3.92 10^6/uL (4.20-5.40); RED CELL DISTRIBUTION WIDTH 14.8 % (12.0-15.0); WHITE BLOOD COUNT 4.6 x10^3/uL (4.8-10.8)
[2018-09-26 06:49] LABS: CALCIUM 8.9 mg/dL (8.5-10.3); CREATININE 0.6 mg/dL (0.4-1.0)
[2018-09-26] MEDS: POLYETHYLENE GLYCOL 3350 17 GM PACKET PO SCH (09:00)
[2018-09-26] MEDS: SODIUM CHLORIDE FLUSH 0.9% 10 ML SYRINGE IVP SCH ×2 (09:00→14:33)
[2018-09-26] MEDS ORDERED: FAMOTIDINE 20 MG TABLET PO SCH (09:00)
[2018-09-26] MEDS ORDERED: IOPAMIDOL-370 100 ML VIAL ONE (09:05)
[2018-09-26] MEDS ORDERED: IOVERSOL 320 100 ML VIAL IVP ONE (10:28)
--- NOTE | 2018-09-26 12:33 | CT Report ---
Reason: L BKA, STUMP RED AND TENDER, EVAL FOR INFECTION Procedure Date: 09/26/2018 Accession Number: [id number] / [id number] Procedure: CT - Lower Extremity Left W/ CPT Code: FULL RESULT: EXAM: LEFT LOWER EXTREMITY CT WITH CONTRAST EXAM DATE: 09/26/2018 10:23 AM. CLINICAL HISTORY: Left below knee amputation, stump red and tender, evaluate for infection. COMPARISON: None. TECHNIQUE: Thin-section axial images were acquired of the lower extremity from the mid femoral diaphysis to the end of the left lower extremity at the site of below the knee amputation after administration of intravenous contrast. IV contrast: 100 mL of iodinated contrast. Post-processing: Coronal and sagittal reformats. Other: None. In accordance with CT protocol optimization, one or more of the following dose reduction techniques were utilized for this exam: automated exposure control, adjustment of mA and/or KV based on patient size, or use of iterative reconstructive technique. FINDINGS: Bones: There are no destructive changes to support CT diagnosis of osteomyelitis. No fracture or dislocation is identified. Joints: The visualized joint spaces are normal. Musculature: Normal. No fatty atrophy. Other: No discrete collection is identified to suggest abscess formation. There is skin thickening distally which can be seen with cellulitis. IMPRESSION: Soft tissue thickening which can be seen with cellulitis. No deep soft tissue fat stranding or abscess and no osseous destruction. RADIA
--- NOTE | 2018-09-26 12:51 | CT Report ---
Reason: L ELBOW CELLULITIS EVAL FOR OSTEO Procedure Date: 09/26/2018 Accession Number: [id number] / [id number] Procedure: CT - Upper Extremity Left W/ CPT Code: FULL RESULT: EXAM: LEFT SHOULDER CT WITH CONTRAST EXAM DATE: 09/26/2018 10:23 AM. CLINICAL HISTORY: Left elbow cellulitis; evaluate for osteo. COMPARISON: ELBOW 3 VIEW LT 09/24/2018 1:40 PM UPPER EXTREMITY LEFT W/ 09/26/2018 9:16 AM. TECHNIQUE: Thin-section axial images were acquired of the shoulder after administration of intravenous contrast. IV contrast: 100 mL of iodinated contrast. Post-processing: Coronal and sagittal reformats. Other: None. In accordance with CT protocol optimization, one or more of the following dose reduction techniques were utilized for this exam: automated exposure control, adjustment of mA and/or KV based on patient size, or use of iterative reconstructive technique. FINDINGS: Examination is limited by photon starvation, likely related to patient body habitus and inability to position the arm above the head. Bones: No fracture or osseous destruction. Joints: The glenohumeral and acromioclavicular joints are normal. No large effusions. Musculature: Normal. No fatty atrophy. Other: The visualized lungs are unremarkable. No lymphadenopathy in the visualized axilla. No abscesses or cellulitis. IMPRESSION: No osseous destruction or abscess. RADIA
[2018-09-26] MEDS: cefTRIAXone 1 GM in SODIUM CHLORIDE 0.9% MINIBAG 100 ML IV SCH (14:34)
[2018-09-26 15:54] VITALS: BP 165/80
--- NOTE | 2018-09-26 16:06 | Discharge Plan ---
Discharge Plan Disposition: 01 Home, Self Care Condition: Stable Prescriptions: Sulfamethox/Trimeth 800/160 [Bactrim Ds 800/160] 1 tab PO BID #9 Diet: Regular Activity Restrictions: Activity as Tolerated Shower Restrictions: No Assistance Devices: Wheelchair Weight Bearing: Full Weight Instruction Topics: Urinary Tract Infec Ch, Dehydration, Dehydration Rehydration Ch, ED Dehydration Prevent Ch Additional Instructions or Follow Up instructions: You were admitted with altered mental status from 1) skin and soft tissue infection of the left elbow, 2) a urinary tract infection, and 3) dehydration. A new prescription for antibiotics, to finish the course of treatment for the infections, was ordered for you. Please take these pills until they are completed. Resume your other pre-hospital medications. Stay better hydrated and eat nutritious meals containing protein, to help heal the infections. You should be seen by your PCP in follow-uo in 1-2 weeks. If you have new or worsening symptoms come to the ER. No Smoking: If you smoke, Please STOP! Call for help.
[2018-09-26] MEDS ORDERED: SULFAMETH/TRIMETH DS 800/160 MG TABLET PO ONE (16:22)
--- NOTE | 2018-10-01 20:55 | DISCHARGE SUMMARY ---
Physician: Poly Kidd MD DATE OF ADMISSION: 09/23/2018 DATE OF DISCHARGE: 09/26/2018 HISTORY OF PRESENT ILLNESS: This is a 78-year-old white female who has a history of a left BKA, depression, chronic pain, who is able to function using a prosthetic leg and a wheelchair at home. The patient was brought in by ambulance when the sister, whom she lives with, found her obtunded and reported that for several days she was becoming "crazy." She reported that the patient had fallen several times in the past few days and that she found the patient in the bathtub, calling for help because she was too weak to get out and she had put herself there after scooting on her amputated stump and hands and elbows after trauma to the left elbow. In the ER, she was found to have obtundation, cellulitis of the left elbow and a possible UTI, dehydrated and was admitted for treatment. HOSPITAL COURSE AND DISCHARGE DIAGNOSES 1. Altered mental status. The patient underwent a head CT, which showed no acute or focal intracranial abnormality. She was felt to have metabolic encephalopathy therefore from dehydration and her infections. She received IV hydration, was more alert each day, eventually able to tolerate liquids and then a solid (vegetarian) diet. 2. Cellulitis of the left upper extremity. The patient had a 1-inch gash of the left elbow and surrounding edema, redness and tenderness from the elbow down to the wrist. This was x-rayed and showed no fracture. She was treated with empiric antibiotics to cover skin organisms. Her blood culture had no growth. She was discharged to complete a course of antibiotics. 3. Urinary tract infection. Urinalysis showed moderate leukocyte esterase, many white blood cells and few bacteria. Another antibiotic was also chosen for UTI coverage. She was sent home with Bactrim DS for an additional four days for treatment of both the cellulitis and her urinary tract infection. 4. Hypokalemia. This was felt to be from poor p.o. intake, it was replaced with IV and p.o. potassium. 5. Dehydration. The patient appeared clinically dehydrated, did complain of thirst, and her urine showed a specific gravity of greater than 1.030, and it even had ketones. She was hydrated with IV fluids aggressively and then transitioned to oral liquids. 6. Pain of the amputation stump of the left lower extremity. On her final two days in the hospital, when starting physical therapy, she complained that the prosthesis caused her stump pain because she had fallen on the stump, and it was red and tender. It was imaged to look for a fracture or osteomyelitis, and that was negative. The patient reported that she is to be fitted for a new padding on her prosthesis by her supplier, who is local. 7. Depression. When she was awake enough to swallow, her antidepressant medications were resumed. 8. Chronic pain. The patient is on Baclofen and Tylenol with codeine, and these were continued when she was more awake. LABORATORY AND IMAGING: Reviewed and summarized above. ALLERGIES: NONE. MEDICATIONS AT DISCHARGE 1. Amitriptyline 100 mg daily. 2. Baclofen 10 mg t.i.d. 3. Iron 324 mg daily. 4. Tylenol with codeine p.r.n. 5. Lyrica 150 mg t.i.d. 6. Seroquel 25 mg every night. 7. Desyrel 225 mg daily. 8. Kenalog cream p.r.n. 9. Bactrim DS b.i.d. for an additional 4 days. CONDITION AT DISCHARGE: Stable. PHYSICAL EXAMINATION VITAL SIGNS: Stable. Blood pressure 160/70, heart rate 90, afebrile, room air saturation 98%. HEENT: Unremarkable. NECK: Without JVD. CHEST: Clear. HEART: Sounds normal. ABDOMEN: Soft, nontender. EXTREMITIES: Left elbow has a clean superficial laceration and no swelling of the forearm. Her left BKA stump has an ecchymosis but is not tender, and the right leg has no evidence of swelling or abnormality. NEUROLOGIC: Intact. FOLLOWUP: She is advised to see her PCP in followup in a week. CODE STATUS: DNR. Time required to complete this entire discharge, chart review, patient education, prescriptions, dictation: 60 minutes. cc: JOEY Buitrago TD: 10/01/2018 18:38 TRISH
== END 2018-09-26 17:30 | disposition home or self-care (01) | DRG 602 ==
LOC: EDUNIT# → ED 13:14 → OBS 17:06 → OBSVTOIN 09-24 14:00 → MS2 09-24 15:51
PROVIDERS: ADMIT Internal Medicine; ATTEND Internal Medicine
DX: R41.0 Disorientation, unspecified (principal); L03.114 Cellulitis of left upper limb; I10 Essential (primary) hypertension; S50.312A Abrasion of left elbow, initial encounter; W01.0XXA Fall on same level from slipping, tripping and stumbling without subsequent striking against object, initial encounter; Y92.009 Unspecified place in unspecified non-institutional (private) residence as the place of occurrence of the external cause; G93.41 Metabolic encephalopathy; R32 Unspecified urinary incontinence; R82.71 Bacteriuria; N30.00 Acute cystitis without hematuria; E86.0 Dehydration; E87.6 Hypokalemia; S51.012A Laceration without foreign body of left elbow, initial encounter; S80.12XA Contusion of left lower leg, initial encounter; W19.XXXA Unspecified fall, initial encounter; F32.9 Major depressive disorder, single episode, unspecified; G89.29 Other chronic pain; Z66 Do not resuscitate; Z99.3 Dependence on wheelchair; Z91.81 History of falling; Z89.512 Acquired absence of left leg below knee; Z79.899 Other long term (current) drug therapy
CPT/HCPCS: 36415; 51701; 70450; 80048; 80053; 81001; 81003; 83605; 83690; 83735; 85025; 87040; 87086; 96361; 96365; 96366; 96367; 96375; 96376; 99283; 99284

== ENCOUNTER 2018-11-18 11:30 | Outpatient (CLI) | payer MEDICARE, MEDICAID ==
[2018-11-18 21:34] LABS: BILIRUBIN,URINE NEGATIVE (NEGATIVE); GLUCOSE, URINE (UA) NEGATIVE (NEGATIVE); KETONES,URINE (UA) NEGATIVE (NEGATIVE); LEUKOCYTE ESTERASE, URINE LARGE (NEGATIVE); NITRITE,URINE POSITIVE (NEGATIVE); OCCULT BLOOD,URINE SMALL (NEGATIVE); PROTEIN,URINE 30 mg/dL (NEGATIVE); UROBILINOGEN,URINE 0.2 (NORMAL) E.U./dL (NORMAL)
[2018-11-18 21:38] LABS: CLARITY,URINE CLOUDY (CLEAR)
[2018-11-18 21:48] LABS: BACTERIA,URINE Many /HPF (None Seen); SQUAMOUS EPITHELIAL CELL,UR RARE Squamous (<= Few)
== END 2018-11-18 23:59 | disposition home or self-care (01) ==
LOC: LAB.R 11:30
PROVIDERS: ATTEND Nurse Practitioner Family
DX: N39.0 Urinary tract infection, site not specified (principal)
CPT/HCPCS: 81001; 87086; 87181

== ENCOUNTER 2019-08-17 13:03 | Outpatient (CLI) | payer MEDICARE, MEDICAID ==
[2019-08-17 17:11] LABS: BASOPHILS # (AUTO) 0.1 10^3/uL (0.0-0.1); BASOPHILS % (AUTO) 1.2 %; EOSINOPHILS # (AUTO) 0.4 10^3/uL (0.0-0.7); EOSINOPHILS % (AUTO) 6.2 %; HGB - HEMOGLOBIN 12.4 g/dL (12.0-16.0); LYMPHOCYTES # (AUTO) 1.2 10^3/uL (1.5-3.5); LYMPHOCYTES % (AUTO) 21.3 %; MEAN CORPUSCULAR HEMOGLOBIN 28.4 pg (27.0-31.0); MEAN CORPUSCULAR HGB CONC 30.8 g/dL (32.0-36.0); MEAN PLATELET VOLUME 12.1 fL (7.9-10.8); MONOCYTES # (AUTO) 0.6 10^3/uL (0.0-1.0); MONOCYTES % (AUTO) 10.5 %; NEUTROPHILS # (AUTO) 3.5 10^3/uL (1.5-6.6); NEUTROPHILS % (AUTO) 60.6 %; PLT - PLATELET COUNT 255 10^3/uL (130-450); RED BLOOD COUNT 4.37 10^6/uL (4.20-5.40); RED CELL DISTRIBUTION WIDTH 21.3 % (12.0-15.0); WHITE BLOOD COUNT 5.7 x10^3/uL (4.8-10.8)
[2019-08-17 17:50] LABS: CALCIUM 9.7 mg/dL (8.5-10.3); CREATININE 0.8 mg/dL (0.4-1.0)
[2019-08-17 17:54] LABS: FERRITIN 26.5 ng/mL (11.0-306.8); PLATELET ESTIMATE, MANUAL NORMAL (130-450,000) (NORMAL); PLATELET MORPHOLOGY NORMAL APPEARANCE (NORMAL)
[2019-08-17 17:57] LABS: FOLATE 21.46 ng/mL (5.90 - >24.8)
== END 2019-08-17 13:04 | disposition home or self-care (01) ==
LOC: LAB.S 13:03
PROVIDERS: ATTEND Physician Assistant Medical
DX: D64.9 Anemia, unspecified (principal); R03.0 Elevated blood-pressure reading, without diagnosis of hypertension
CPT/HCPCS: 36415; 80048; 82607; 82728; 82746; 83540; 84466; 85025

== ENCOUNTER 2020-09-02 12:08 | Inpatient (IN) | payer MEDICARE, MEDICAID ==
--- NOTE | 2020-09-02 12:39 | ED Physician Documentation ---
History of Present Illness - Stated complaint Stated Complaint: WEAKNESS - Chief complaint Chief Complaint: General - History obtained from History obtained from: Patient - Additonal information Additional information: This is a 80-year-old woman with history of potentially a CVA, chronic pain, history of multiple spinal issues with a vascular injury to the left leg necessitating a remote BKA. She lives with her sister. She comes in complaining of about 4 to 5 weeks of generalized weakness, dizzy spells where she loses her balance and shortness of breath. The dizzy spells are intermittent, but makes it hard for her to transfer from chair to bed. She is fallen many times in the last few weeks, she hit her head several x2 but she does not think she has any serious injuries. She notes bilateral arm numbness. When she does fall she has a hard time getting up because of the weakness. She also complains of shortness of breath and hacking cough which is occasional. She did have heme hemoptysis briefly a few days ago which was transient. She denies any urinary complaints. No fevers. No chest pain. She has a history of anemia and is supposed to be on iron but she says she is rarely compliant because it causes GI issues. Recently changed from Lyrica to Neurontin, she does not know the dose, to 3 times a day. Takes baclofen 4 times a day. Takes amitriptyline at night. Tylenol with codeine as needed. Seroquel and trazodone as well. Review of Systems Ten Systems: 10 systems reviewed and negative Constitutional: reports: Fatigue. denies: Weight Loss Ears: denies: Ear pain Nose: denies: Rhinorrhea / runny nose Throat: denies: Sore throat Cardiac: denies: Chest pain / pressure Respiratory: reports: Dyspnea, Cough, Hemoptysis, Wheezing GI: denies: Abdominal Pain, Nausea, Vomiting PD PAST MEDICAL HISTORY - Past Medical History Past Medical History: Yes Cardiovascular: None Respiratory: Pneumonia Neuro: None Endocrine/Autoimmune: None GI: GERD, GI bleed, Ulcers : Kidney stones HEENT: None Psych: Depression Musculoskeletal: Chronic back pain Derm: Rosacea - Past Surgical History Past Surgical History: Yes General: Cholecystectomy, Colonoscopy, EGD Ortho: Spine surgery - Present Medications Home Medications: Ambulatory Orders Medication Instructions Recorded Confirmed Amitriptyline [Elavil] 100 mg PO DAILY 05/18/16 09/23/18 Hydrocodone/Acetaminophen 0.5 - 1 tab PO DAILY PRN 05/18/16 09/23/18 [Hydrocodone-Acetamin 10-325 mg] traZODone [Desyrel] 225 mg PO DAILY 05/19/16 09/23/18 Baclofen 10 mg PO TID PRN 09/23/18 09/23/18 Ferrous Gluconate 324 mg PO DAILY 09/23/18 09/23/18 Pregabalin [Lyrica] 150 mg PO TID 09/23/18 09/23/18 QUEtiapine [SEROquel] 25 mg PO QPM 09/23/18 09/23/18 Triamcinolone 0.1% Oint [Kenalog 1 applic TOP QID PRN 09/23/18 09/23/18 0.1% Oint] Sulfamethox/Trimeth 800/160 1 tab PO BID #9 09/26/18 [Bactrim Ds 800/160] - Allergies Allergies/Adverse Reactions: Allergies Allergy/AdvReac Type Severity Reaction Status Date / Time No Known Drug Allergies Allergy Verified 09/02/20 12:12 - Social History Does the pt smoke?: No Smoking Status: Never smoker Does the pt drink ETOH?: No Does the pt have substance abuse?: No - Immunizations Immunizations are current?: Yes PD ED PE NORMAL - Vitals Vital signs reviewed: Yes - General General: Alert and oriented X 3, No acute distress - HEENT HEENT: PERRL, EOMI - Neck Neck: Supple, no meningeal sign, No bony TTP - Cardiac Cardiac: RRR, No murmur - Respiratory Respiratory: No respiratory distress, Other (Left basilar wheezes) - Abdomen Abdomen: Soft, Non tender - Back Back: No CVA TTP, No spinal TTP - Derm Derm: Normal color, Warm and dry - Extremities Extremities: Other (Left BKA with prosthesis in place. No right-sided edema or tenderness.) - Neuro Neuro: Alert and oriented X 3, No motor deficit, No sensory deficit, Normal s peech Eye Opening: Spontaneous Motor: Obeys Commands Verbal: Oriented GCS Score: 15 - Psych Psych: Normal mood, Normal affect Results - Vitals Vitals: Vital Signs - 24 hr 09/02/20 09/02/20 09/02/20 12:12 12:21 14:28 Temperature 36.1 C L 36.4 C L Heart Rate 96 88 97 Respiratory 20 20 18 Rate Blood Pressure 113/48 L 117/65 133/63 H O2 Saturation 100 99 100 09/02/20 14:50 Temperature 36.5 C Heart Rate 93 Respiratory 22 Rate Blood Pressure 136/45 H O2 Saturation Oxygen O2 Source [With Activity] Nasal cannula O2 Source [Without Activity] Nasal cannula O2 Source Room air - EKG (time done) 1245 Rate: Rate (enter#) (83) Rhythm: NSR Proctor: Normal Intervals: Normal PA QRS: Normal Ischemia: Normal ST segments Computer interpretation: Agree with computer - Labs Labs: Laboratory Tests 09/02/20 09/02/20 09/02/20 12:55 12:55 12:55 WBC 6.3 RBC 1.74 L Hgb 4.3 L* Hct 15.1 L* MCV 86.8 MCH 24.7 L MCHC 28.5 L RDW 16.3 H Plt Count 421 MPV 9.9 Neut # (Auto) 4.9 Lymph # (Auto) 0.7 L [place] # (Auto) 0.5 Eos # (Auto) 0.2 Baso # (Auto) 0.0 Absolute Nucleated RBC 0.02 Nucleated RBC % 0.3 Sodium 139 Potassium 4.2 Chloride 105 Carbon Dioxide 23 Anion Gap 11.0 BUN 25 H Creatinine 0.9 Estimated GFR (MDRD) 61 L Glucose 115 H Calcium 9.0 Iron TIBC Transferrin Total Bilirubin 0.5 AST 18 ALT 12 Alkaline Phosphatase 62 Troponin I High Sens 4.4 B-Natriuretic Peptide Total Protein 6.4 L Albumin 3.1 L Globulin 3.3 Albumin/Globulin Ratio 0.9 L Blood Type Antibody Screen Crossmatch IS Only 09/02/20 09/02/20 09/02/20 12:55 12:55 13:35 WBC RBC Hgb Hct MCV MCH MCHC RDW Plt Count MPV Neut # (Auto) Lymph # (Auto) [place] # (Auto) Eos # (Auto) Baso # (Auto) Absolute Nucleated RBC Nucleated RBC % Sodium Potassium Chloride Carbon Dioxide Anion Gap BUN Creatinine Estimated GFR (MDRD) Glucose Calcium Iron < 6 L TIBC 377 Transferrin 269 Total Bilirubin AST ALT Alkaline Phosphatase Troponin I High Sens B-Natriuretic Peptide 122 H Total Protein Albumin Globulin Albumin/Globulin Ratio Blood Type O POSITIVE Antibody Screen NEGATIVE Crossmatch IS Only See Detail - Rads (name of study) Profound anemia CT head and C-spine Radiology: EMP read contemporaneously (CT head and C-spine: No acute disease but she does have severe spinal stenosis.) CT C spine Radiology: EMP read contemporaneously (No PE, patchy GGO bilat, nonspecific, lg hiatal hernia) PD MEDICAL DECISION MAKING - ED course ED course: 80-year-old woman with the above-mentioned medical history presents with progressive weakness, balance issues, dizzy spells, multiple falls having hit her head. Bilateral arm numbness. Work-up here demonstrates profound anemia, spinal stenosis, and atypical groundglass opacity in both lungs. Coronavirus test was sent. Given the level of anemia we will admit her and I spoke with Dr. Kidd for admission. 3 units of blood were ordered here. Added on iron studies which show very low iron but normal TIBC and transferrin. Discussed with patient, she is never had upper or lower endoscopies to her knowledge. Coronavirus test added on given the findings on chest CT and also the need for admission. No antibiotics ordered since it appears to be not a bacterial pneumonia. Departure - Departure Disposition: [address] [facility] DC/Xfer Clinical Impression: Anemia Qualifiers: Anemia type: unspecified type Qualified Code(s): D64.9 - Anemia, unspecified Pneumonia Qualifiers: Pneumonia type: due to unspecified organism Laterality: bilateral Lung location: unspecified part of lung Qualified Code(s): J18.9 - Pneumonia, unspecified organism Dyspnea Qualifiers: Dyspnea type: dyspnea on exertion Qualified Code(s): R06.00 - Dyspnea, unspecified Spinal stenosis Qualifiers: Spinal region: cervical Qualified Code(s): M48.02 - Spinal stenosis, cervical region Condition: Stable
[2020-09-02 13:04] LABS: BASOPHILS % (AUTO) 0.3 %; EOSINOPHILS # (AUTO) 0.2 10^3/uL (0.0-0.7); EOSINOPHILS % (AUTO) 2.4 %; LYMPHOCYTES # (AUTO) 0.7 10^3/uL (1.5-3.5); LYMPHOCYTES % (AUTO) 11.4 %; MEAN CORPUSCULAR HEMOGLOBIN 24.7 pg (27.0-31.0); MEAN CORPUSCULAR HGB CONC 28.5 g/dL (32.0-36.0); MEAN CORPUSCULAR VOLUME 86.8 fL (81.0-99.0); MEAN PLATELET VOLUME 9.9 fL (7.9-10.8); MONOCYTES # (AUTO) 0.5 10^3/uL (0.0-1.0); MONOCYTES % (AUTO) 8.6 %; NEUTROPHILS # (AUTO) 4.9 10^3/uL (1.5-6.6); NEUTROPHILS % (AUTO) 76.8 %; PLT - PLATELET COUNT 421 10^3/uL (130-450); RED BLOOD COUNT 1.74 10^6/uL (4.20-5.40); RED CELL DISTRIBUTION WIDTH 16.3 % (12.0-15.0); WHITE BLOOD COUNT 6.3 x10^3/uL (4.8-10.8)
[2020-09-02 13:07] LABS: HGB - HEMOGLOBIN 4.3 g/dL (12.0-16.0)
[2020-09-02 13:23] LABS: ALBUMIN 3.1 g/dL (3.2-5.5); ALBUMIN/GLOBULIN RATIO 0.9 (1.0-2.2); BILIRUBIN,TOTAL 0.5 mg/dL (0.2-1.0); CREATININE 0.9 mg/dL (0.4-1.0); TOTAL PROTEIN 6.4 g/dL (6.7-8.2)
[2020-09-02] MEDS ORDERED: IOVERSOL 320 100 ML VIAL IVP ONE ×2 (13:44→15:59)
--- NOTE | 2020-09-02 14:14 | CT Report ---
PROCEDURE: HEAD WO INDICATIONS: weakness, head inj TECHNIQUE: Noncontrast 4.5 mm thick angled axial sections acquired from the foramen magnum to the vertex. For r adiation dose reduction, the following was used: automated exposure control, adjustment of mA and/or kV according to patient size. COMPARISON: 09/23/2018. FINDINGS: Image quality: Excellent. CSF spaces: Basal cisterns are patent. No extra-axial fluid collections. Ventricles, cerebral sulc i, and basal cisterns are symmetric in size and morphology. Brain: No midline shift. No intracranial masses or hemorrhage. Noonan-white matter interface is norm al. There is diffuse cortical volume loss with associated ex vacuo dilatation of the bilateral ventr icles. No acute intracranial hemorrhage or evidence of transcortical infarction. Scattered bilatera l periventricular white matter hypoattenuation likely sequela from chronic small vessel ischemic dise ase. Atherosclerotic calcifications within the intracranial segments of the bilateral internal caroti d arteries are noted. Skull and face: Calvarium and visualized facial bones are intact, without suspicious lesions. Sinuses: Visualized sinuses and mastoids are clear. IMPRESSION: CT head without acute intracranial abnormalities. No acute calvarial fractures. Stable age-related se nescent changes and sequela of chronic small vessel ischemic disease. Reviewed by: Abhijeet Trinh MD on 09/02/2020 1:12 PM [facility] Approved by: Abhijeet Trinh MD on 09/02/2020 1:12 PM [facility] Station ID: [id number]
--- NOTE | 2020-09-02 14:26 | CT Report ---
PROCEDURE: ANGIO CHEST W INDICATIONS: dyspnea, H/O DVT or arterial occlusion CONTRAST: IV CONTRAST: Optiray 320 ml: 80 PO CONTRAST: *NO PO CONTRAST TECHNIQUE: After the administration of intravenous contrast, 2 mm thick sections acquired from the pulmonary api los to the posterior costophrenic angles. 3-dimensional maximum intensity projection (MIP) coronal a nd sagittal reformats were then acquired through the thorax. For radiation dose reduction, the follow ing was used: automated exposure control, adjustment of mA and/or kV according to patient size. COMPARISON: CT abdomen pelvis 05/17/2016. FINDINGS: Image quality: Evaluation limited by motion artifact. Pulmonary arteries: Pulmonary arteries are normal in size, and demonstrate no definite intraluminal filling defects to suggest central pulmonary embolism, with evaluation of subsegmental branches limit ed by motion artifact. Lungs and pleura: There is atelectasis in the left lower lobe associated with a large hiatal hernia. Mild dependent atelectasis is also demonstrated bilaterally. There are patchy groundglass opacities b ilaterally with an upper lobe predominance. No pleural effusions or pneumothorax. Central and periph eral airways are patent. Mediastinum: Heart size is normal, without pericardial effusion. No mediastinal or hilar adenopathy . Thoracic aorta is normal in caliber and enhancement. There is a large hiatal hernia containing th e stomach as well as the transverse colon. Bones and chest wall: No suspicious bony lesions. Ribs and thoracic spine appear intact throughout. No axillary or supraclavicular adenopathy. Abdomen: Visualized upper abdomen demonstrates surgical absence of the gallbladder. A large amount o f stool is demonstrated within the visualized colon suggestive of constipation. IMPRESSION: 1. No definite central pulmonary embolism, with evaluation of subsegmental branches is limited by mot ion artifact. 2. Patchy groundglass opacities bilaterally with an upper lobe predominance. The findings are nonspec ific but suggestive of an inflammatory or infectious process such as hypersensitivity pneumonitis or atypical pneumonia. 3. Large hiatal hernia with herniation of the stomach and a segment of the transverse colon. Associat ed left lower lobe atelectasis demonstrated. Reviewed by: Hugo Valdes MD on 09/02/2020 2:25 PM PST Approved by: Hugo Valdes MD on 09/02/2020 2:25 PM PST Station ID: [id number]
--- NOTE | 2020-09-02 14:26 | CT Report ---
PROCEDURE: CERVICAL SPINE WO INDICATIONS: B arm numbness TECHNIQUE: Noncontrast 3 mm thick sections acquired from the skull base to the T4 level. Sagittal and coronal r eformats were then constructed. For radiation dose reduction, the following was used: automated exp osure control, adjustment of mA and/or kV according to patient size. COMPARISON: None. FINDINGS: Image quality: Excellent. Bones: No acute fractures or dislocations. Visualized superior ribs are intact. Moderate-severe mu ltilevel degenerative changes of the cervical spine with severe bilateral facet arthropathy at C3-4 C 4-5 and C5-6. Findings are more severe on the left. There is also disc space loss at C4-4 through C5- 6. Degenerative endplate changes and endplate osteophyte formation at these levels. Moderate spinal c anal stenosis at C3-4 and C5-6. Moderate-severe bilateral neuroforaminal narrowing at these levels. N o acute compression fractures. C1-C2 relationship is maintained. Craniocervical junction is intact. Soft tissues: Prevertebral soft tissues are normal in thickness. No paravertebral hematomas. No ap ical pneumothoraces. IMPRESSION: Cervical spine without acute fracture or location. Moderate-severe multilevel cervical spondylosis from C3-4 through C5-6 where there is spinal canal st enosis and significant neuroforaminal stenosis. Straightening of cervical lordosis. Reviewed by: Abhijeet Trinh MD on 09/02/2020 1:25 PM [facility] Approved by: Abhijeet Trinh MD on 09/02/2020 1:25 PM [facility] Station ID: [id number]
[2020-09-02] MEDS ORDERED: GABAPENTIN 100 MG CAPSULE PO STA (14:51)
[2020-09-02] MEDS ORDERED: BACLOFEN 10 MG TABLET PO STA (14:51)
[2020-09-02] MEDS ORDERED: PANTOPRAZOLE 40 MG VIAL IVP STA (14:53)
[2020-09-02 15:01] LABS: IRON < 6 ug/dL (28-170); TOTAL IRON BINDING CAPACITY 377 ug/dL (250-450); TRANSFERRIN 269 mg/dL (192-382)
--- NOTE | 2020-09-02 17:57 | PHARMACY PROGRESS NOTE ---
- Best Possible Medication History Admit Date and Time: 09/02/20 1455 Processed by: Pharmacy Medication History completed: Yes Patient Interview: Completed Secondary Source(s): Physician records, Pharmacy records, Insurance records As the person ultimately responsible for medication therapy, providers are able to order a medication from an existing home medication list in [facility] via the "Reconcile Routine" prior to Confirmation of that medication by student support advisor. Such practice is discouraged except when the physician, in their clinical judgment, deems that a medical need exists for a medication without regard to previous use.
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
[2020-09-02] MEDS: NYSTATIN POWDER 15 GM TOP SCH (22:32)
[2020-09-02] MEDS: OXYMETAZOLINE HCL 100 SPRAYS BOTTLE NAS PRN (22:32)
[2020-09-02] MEDS ORDERED: traZODone 50 MG TABLET PO SCH (22:41)
[2020-09-02] MEDS: GABAPENTIN 400 MG CAPSULE PO SCH (22:54)
[2020-09-02] MEDS: BACLOFEN 10 MG TABLET PO SCH (22:54)
[2020-09-03] MEDS: BACLOFEN 10 MG TABLET PO SCH ×3 (05:46→22:13)
[2020-09-03] MEDS: GABAPENTIN 400 MG CAPSULE PO SCH ×3 (05:46→22:13)
[2020-09-03 06:10] LABS: CALCIUM 9.2 mg/dL (8.5-10.3); CREATININE 0.7 mg/dL (0.4-1.0)
[2020-09-03 07:05] LABS: BASOPHILS # (AUTO) 0.1 10^3/uL (0.0-0.1); EOSINOPHILS # (AUTO) 0.6 10^3/uL (0.0-0.7); EOSINOPHILS % (AUTO) 8.3 %; LYMPHOCYTES % (AUTO) 14.8 %; MEAN CORPUSCULAR HGB CONC 31.5 g/dL (32.0-36.0); MEAN CORPUSCULAR VOLUME 85.7 fL (81.0-99.0); MEAN PLATELET VOLUME 10.6 fL (7.9-10.8); MONOCYTES # (AUTO) 0.9 10^3/uL (0.0-1.0); MONOCYTES % (AUTO) 12.7 %; NEUTROPHILS # (AUTO) 4.3 10^3/uL (1.5-6.6); NEUTROPHILS % (AUTO) 61.5 %; PLT - PLATELET COUNT 346 10^3/uL (130-450); RED CELL DISTRIBUTION WIDTH 15.2 % (12.0-15.0)
[2020-09-03] MEDS ORDERED: FERRIC GLUCONATE 125 MG in SODIUM CHLORIDE 0.9% 100ML 100 ML IV ONE (09:00)
[2020-09-03] MEDS: NYSTATIN POWDER 15 GM TOP SCH ×2 (09:12→20:54)
[2020-09-03] MEDS ORDERED: traZODone 50 MG TABLET PO PRN (09:17)
[2020-09-03] MEDS: PANTOPRAZOLE 40 MG TABLET PO SCH ×2 (10:56→15:52)
[2020-09-03] MEDS ORDERED: BENZOCAINE/TETRACAINE/BUTAMBEN 20 GM ONE (11:21)
[2020-09-03] MEDS ORDERED: LIDO GARGLE 30 ML BOTTLE ONE (11:22)
[2020-09-03] MEDS: OXYMETAZOLINE HCL 100 SPRAYS BOTTLE NAS PRN (11:51)
[2020-09-03] MEDS ORDERED: D5.45NS W/20 MEQ KCL 1,000 ML IV SCH ×2 (12:00→14:33)
--- NOTE | 2020-09-03 13:01 | ANESTHESIA ---
Pre-Anesthesia VS, & Labs - Diagnosis Anemia, possible GI Bleed - Procedure EGD Vital Signs: Temp Pulse Resp BP Pulse Ox 36.9 C 88 18 144/77 H 95 09/03/20 11:17 09/03/20 11:17 09/03/20 11:17 09/03/20 11:17 09/03/20 11:17 Height: 5 ft Weight (kg): 62.5 kg Body Mass Index: 26.9 BMI Classification: Overweight - NPO Last Fluid Intake: Clear liquids 0800 - Is Patient ?: No - Lab Results Current Lab Results: Laboratory Tests 09/03/20 05:23: WBC 7.0, RBC 3.70 L, Hgb 10.0 L, Hct 31.7 L, MCV 85.7, MCH 27.0, MCHC 31.5 L, RDW 15.2 H, Plt Count 346, MPV 10.6, Neut # (Auto) 4.3, Lymph # (Auto) 1.0 L, Hardee # (Auto) 0.9, Eos # (Auto) 0.6, Baso # (Auto) 0.1, Absolute Nucleated RBC 0.04, Nucleated RBC % 0.6 09/03/20 05:15: Sodium 143, Potassium 3.9, Chloride 110, Carbon Dioxide 22, Anion Gap 11.0, BUN 15, Creatinine 0.7, Estimated GFR (MDRD) 81 L, Glucose 95, Calcium 9.2 09/02/20 13:35: Blood Type O POSITIVE, Antibody Screen NEGATIVE, Crossmatch IS Only See Detail 09/02/20 12:55: Iron < 6 L, TIBC 377, Transferrin 269 09/02/20 12:55: B-Natriuretic Peptide 122 H 09/02/20 12:55: Troponin I High Sens 4.4 09/02/20 12:55: Sodium 139, Potassium 4.2, Chloride 105, Carbon Dioxide 23, Anion Gap 11.0, BUN 25 H, Creatinine 0.9, Estimated GFR (MDRD) 61 L, Glucose 115 H, Calcium 9.0, Total Bilirubin 0.5, AST 18, ALT 12, Alkaline Phosphatase 62, Total Protein 6.4 L, Albumin 3.1 L, Globulin 3.3, Albumin/Globulin Ratio 0.9 L 09/02/20 12:55: WBC 6.3, RBC 1.74 L, Hgb 4.3 L*, Hct 15.1 L*, MCV 86.8, MCH 24.7 L, MCHC 28.5 L, RDW 16.3 H, Plt Count 421, MPV 9.9, Neut # (Auto) 4.9, Lymph # (Auto) 0.7 L, Hardee # (Auto) 0.5, Eos # (Auto) 0.2, Baso # (Auto) 0.0, Absolute Nucleated RBC 0.02, Nucleated RBC % 0.3 Lab results reviewed: Yes Fish Bones: 09/03/20 05:23 09/03/20 05:15 Home Medications and Allergies Home Medications: Ambulatory Orders Amitriptyline HCl 100 mg PO QPM 09/02/20 Gabapentin [Neurontin] 800 mg PO TID 09/02/20 Losartan [Cozaar] 50 mg PO DAILY 09/02/20 Trazodone HCl 50 - 100 mg PO QPM PRN 09/02/20 Active Medications Amitriptyline HCl (Elavil) 100 mg PO QPM [facility] Baclofen (Lioresal) 10 mg PO TID [facility] Last Admin: 09/03/20 05:46 Dose: 10 mg Documented by: Ferrous Sulfate (Feosol) 325 mg PO BIDWM [facility] Gabapentin (Neurontin) 800 mg PO TID [facility] Potassium Chloride/Dextrose/Sod Cl (D5.45ns W/20 Meq Kcl) 1,000 mls @ 100 mls/hr IV .Q10H [facility] Stop: 09/04/20 07:59 Last Admin: 09/03/20 11:47 Dose: 100 mls/hr Documented by: Nystatin (Nystop) 1 applic TOP BID [facility] Last Admin: 09/03/20 09:12 Dose: 1 applic Documented by: Oxymetazoline HCl (Afrin) 2 sprays TAYLER BID PRN PRN Reason: Nasal Congestion Last Admin: 09/03/20 11:51 Dose: 2 spr Documented by: Pantoprazole Sodium (Protonix) 40 mg PO BIDAC [facility] Last Admin: 09/03/20 10:56 Dose: 40 mg Documented by: Quetiapine Fumarate (Seroquel) 25 mg PO QPM [facility] Trazodone HCl (Desyrel) 50 mg PO QPM PRN PRN Reason: Insomnia Baclofen 10 mg PO TID PRN 09/23/18 Ferrous Gluconate 324 mg PO DAILY 09/23/18 QUEtiapine [SEROquel] 25 mg PO QPM 09/23/18 Amitriptyline HCl 100 mg PO QPM 09/02/20 Gabapentin [Neurontin] 800 mg PO TID 09/02/20 Losartan [Cozaar] 50 mg PO DAILY 09/02/20 Trazodone HCl 50 - 100 mg PO QPM PRN 09/02/20 Allergies/Adverse Reactions: Allergies Allergy/AdvReac Type Severity Reaction Status Date / Time No Known Drug Allergies Allergy Verified 09/02/20 12:12 Anes History & Medical History - Anesthetic History Anesthesia Complications: reports: No previous complications - Medical History Cardiovascular: reports: None Pulmonary: reports: Pneumonia Gastrointestinal: reports: GERD, GI bleed, Ulcers Urinary: reports: Kidney stones Neuro: reports: Other (Paresthesias in brynn hands) Musculoskeletal: reports: Chronic back pain, Other (Cervical stenosis, multiple back surgeries, BKA) Endocrine/Autoimmune: reports: None Blood Disorders: reports: Anemia Skin: reports: Rosacea Smoking Status: Never smoker Psychosocial: reports: No issues indicated History of Cancer?: No - Surgical History General: Cholecystectomy, Colonoscopy, EGD Orthopedic: Spine surgery (Back surgery with rods/cages), Amputation (Left BKA) Exam General: Alert, Oriented x3, Cooperative, No acute distress Dental: Poor dentition Mouth Openin Fingerbreadth Neck Mobility: Reduced (Cervical stenosis, paresthesias in hands) Mallampati classification: III Thyromental Distance: 4-6 cm Mental/Cognitive Status: Alert/Oriented X3, Normal for patient Plan Anesthesia Type: MAC Consent for Procedure(s) Verified and Reviewed: Yes Code Status: Attempt Resuscitation ASA classification: 2-Mild systemic disease Is this case an emergency?: No
--- NOTE | 2020-09-03 13:27 | HISTORY & PHYSICAL EXAMINATION ---
Chief Complaint - Chief Complaint Chief Complaint: Dizzyness and fatigue GI Bleed Admit Template - Admitted From Admitted from: ED (80 year old with history of anemia. She denies weight loss, pain on swallowing, trouble swallowing. She has not noticed bloody or dark stool. For the last several months she has had mild right lower quadrant pain. Family history negative for intestinal or gastric pathology. She denies having p) - History Obtained From History obtained from: Patient Exam limitations: No limitations - History of Present Illness Severity at the worst: reports: Moderate Bleeding quality: reports: None Timing: reports: Gradual onset Duration: reports: Chronic Improved with: reports: Other (blood transfusion) PMH/PSH - Past Medical History Cardiovascular: positive: None Respiratory: positive: Pneumonia Neuro: positive: Other (Paresthesias in brynn hands) Endocrine/Autoimmune: positive: None GI: positive: GERD, GI bleed, Ulcers : positive: Kidney stones HEENT: positive: None Psych: positive: Depression Musculoskeletal: positive: Chronic back pain, Other (Cervical stenosis, multiple back surgeries, BKA) Derm: positive: Rosacea MRSA Hx?: No - Past Surgical History General: positive: Cholecystectomy, Colonoscopy, EGD Ortho: positive: Spine surgery (Back surgery with rods/cages), Amputation (Left BKA) Neuro: positive: Other (s) Social & Family Hx - Social History Does the pt smoke?: No Smoking Status: Never smoker Does the pt drink ETOH?: No Does the pt have substance abuse?: No - POLST Patient has POLST: No POLST Status: DNR Meds/Allgy - Home Medications Home Medications: Ambulatory Orders Medication Instructions Recorded Confirmed Baclofen 10 mg PO TID PRN 09/23/18 09/02/20 Ferrous Gluconate 324 mg PO DAILY 09/23/18 09/02/20 QUEtiapine [SEROquel] 25 mg PO QPM 09/23/18 09/02/20 Amitriptyline HCl 100 mg PO QPM 09/02/20 09/02/20 Gabapentin [Neurontin] 800 mg PO TID 09/02/20 09/02/20 Losartan [Cozaar] 50 mg PO DAILY 09/02/20 09/02/20 Trazodone HCl 50 - 100 mg PO QPM PRN 09/02/20 09/02/20 - Allergies Allergies/Adverse Reactions: Allergies Allergy/AdvReac Type Severity Reaction Status Date / Time No Known Drug Allergies Allergy Verified 09/02/20 12:12 Review of Systems - Constitutional Constitutional: reports: Fatigue (10 pt ros as above otherwise unremarkable) Exam - Vital Signs Reviewed Vital Signs: Yes Vital Signs: Vital Signs x48h Temp Pulse Resp BP Pulse Ox 09/03/20 11:17 36.9 C 88 18 144/77 H 95 09/03/20 07:45 36.6 C 87 18 160/74 H 93 - Physical Exam General Appearance: positive: No acute distress, Alert Eyes Bilateral: positive: Normal inspection, PERRL, EOMI ENT: positive: No signs of dehydration Neck: positive: No JVD, Trachea midline Respiratory: positive: No respiratory distress Extremities: positive: Other (left leg bka and prosthesis) Neurologic/Psychiatric: positive: Oriented x3 Results - Lab Results Fish Bones: 09/03/20 05:23 09/03/20 05:15 Other Lab Results: Lab Results x24hrs 09/03/20 09/03/20 09/02/20 Range/Units 05:23 05:15 14:45 WBC 7.0 (4.8-10.8) x10^3/uL RBC 3.70 L (4.20-5.40) 10^6/uL Hgb 10.0 L (12.0-16.0) g/dL Hct 31.7 L (37.0-47.0) % MCV 85.7 (81.0-99.0) fL MCH 27.0 (27.0-31.0) pg MCHC 31.5 L (32.0-36.0) g/dL RDW 15.2 H (12.0-15.0) % Plt Count 346 (130-450) 10^3/uL MPV 10.6 (7.9-10.8) fL Neut # (Auto) 4.3 (1.5-6.6) 10^3/uL Lymph # (Auto) 1.0 L (1.5-3.5) 10^3/uL [place] # (Auto) 0.9 (0.0-1.0) 10^3/uL Eos # (Auto) 0.6 (0.0-0.7) 10^3/uL Baso # (Auto) 0.1 (0.0-0.1) 10^3/uL Absolute Nucleated RBC 0.04 x10^3/uL Nucleated RBC % 0.6 /100WBC Sodium 143 (135-145) mmol/L Potassium 3.9 (3.5-5.0) mmol/L Chloride 110 (101-111) mmol/L Carbon Dioxide 22 (21-32) mmol/L Anion Gap 11.0 (6-13) BUN 15 (6-20) mg/dL Creatinine 0.7 (0.4-1.0) mg/dL Estimated GFR (MDRD) 81 L (>89) Glucose 95 (70-100) mg/dL Calcium 9.2 (8.5-10.3) mg/dL Iron (28-170) ug/dL TIBC (250-450) ug/dL Transferrin (192-382) mg/dL Total Bilirubin (0.2-1.0) mg/dL AST (10-42) IU/L ALT (10-60) IU/L Alkaline Phosphatase (42-121) IU/L Troponin I High Sens (2.3-14.8) ng/L B-Natriuretic Peptide (5-100) pg/mL Total Protein (6.7-8.2) g/dL Albumin (3.2-5.5) g/dL Globulin (2.1-4.2) g/dL Albumin/Globulin Ratio (1.0-2.2) SARS-CoV-2 (PCR) NOT DETECTED Blood Type Antibody Screen Crossmatch IS Only 09/02/20 09/02/20 09/02/20 Range/Units 13:35 12:55 12:55 WBC (4.8-10.8) x10^3/uL RBC (4.20-5.40) 10^6/uL Hgb (12.0-16.0) g/dL Hct (37.0-47.0) % MCV (81.0-99.0) fL MCH (27.0-31.0) pg MCHC (32.0-36.0) g/dL RDW (12.0-15.0) % Plt Count (130-450) 10^3/uL MPV (7.9-10.8) fL Neut # (Auto) (1.5-6.6) 10^3/uL Lymph # (Auto) (1.5-3.5) 10^3/uL [place] # (Auto) (0.0-1.0) 10^3/uL Eos # (Auto) (0.0-0.7) 10^3/uL Baso # (Auto) (0.0-0.1) 10^3/uL Absolute Nucleated RBC x10^3/uL Nucleated RBC % /100WBC Sodium (135-145) mmol/L Potassium (3.5-5.0) mmol/L Chloride (101-111) mmol/L Carbon Dioxide (21-32) mmol/L Anion Gap (6-13) BUN (6-20) mg/dL Creatinine (0.4-1.0) mg/dL Estimated GFR (MDRD) (>89) Glucose (70-100) mg/dL Calcium (8.5-10.3) mg/dL Iron < 6 L (28-170) ug/dL TIBC 377 (250-450) ug/dL Transferrin 269 (192-382) mg/dL Total Bilirubin (0.2-1.0) mg/dL AST (10-42) IU/L ALT (10-60) IU/L Alkaline Phosphatase (42-121) IU/L Troponin I High Sens (2.3-14.8) ng/L B-Natriuretic Peptide 122 H (5-100) pg/mL Total Protein (6.7-8.2) g/dL Albumin (3.2-5.5) g/dL Globulin (2.1-4.2) g/dL Albumin/Globulin Ratio (1.0-2.2) SARS-CoV-2 (PCR) Blood Type O POSITIVE Antibody Screen NEGATIVE Crossmatch IS Only See Detail 09/02/20 09/02/20 Range/Units 12:55 12:55 WBC (4.8-10.8) x10^3/uL RBC (4.20-5.40) 10^6/uL Hgb (12.0-16.0) g/dL Hct (37.0-47.0) % MCV (81.0-99.0) fL MCH (27.0-31.0) pg MCHC (32.0-36.0) g/dL RDW (12.0-15.0) % Plt Count (130-450) 10^3/uL MPV (7.9-10.8) fL Neut # (Auto) (1.5-6.6) 10^3/uL Lymph # (Auto) (1.5-3.5) 10^3/uL [place] # (Auto) (0.0-1.0) 10^3/uL Eos # (Auto) (0.0-0.7) 10^3/uL Baso # (Auto) (0.0-0.1) 10^3/uL Absolute Nucleated RBC x10^3/uL Nucleated RBC % /100WBC Sodium 139 (135-145) mmol/L Potassium 4.2 (3.5-5.0) mmol/L Chloride 105 (101-111) mmol/L Carbon Dioxide 23 (21-32) mmol/L Anion Gap 11.0 (6-13) BUN 25 H (6-20) mg/dL Creatinine 0.9 (0.4-1.0) mg/dL Estimated GFR (MDRD) 61 L (>89) Glucose 115 H (70-100) mg/dL Calcium 9.0 (8.5-10.3) mg/dL Iron (28-170) ug/dL TIBC (250-450) ug/dL Transferrin (192-382) mg/dL Total Bilirubin 0.5 (0.2-1.0) mg/dL AST 18 (10-42) IU/L ALT 12 (10-60) IU/L Alkaline Phosphatase 62 (42-121) IU/L Troponin I High Sens 4.4 (2.3-14.8) ng/L B-Natriuretic Peptide (5-100) pg/mL Total Protein 6.4 L (6.7-8.2) g/dL Albumin 3.1 L (3.2-5.5) g/dL Globulin 3.3 (2.1-4.2) g/dL Albumin/Globulin Ratio 0.9 L (1.0-2.2) SARS-CoV-2 (PCR) Blood Type Antibody Screen Crossmatch IS Only Impression/Plan - Problem List Problem List: She describes having recurrent anemia. Plan EGD Plan out patient colonoscopy She should follow up in the surgery office after discharge Parq held and consent obtained
[2020-09-03] MEDS ORDERED: fentaNYL 100 MCG/2 ML VIAL IVP ONE (13:30)
[2020-09-03] MEDS ORDERED: PROPOFOL 200 MG/20 ML VIAL IVP ONE (13:30)
[2020-09-03] MEDS ORDERED: LIDOCAINE-MPF 2% 5 ML VIAL IM ONE (13:30)
[2020-09-03 14:22] LABS: BASOPHILS % (AUTO) 0.8 %; EOSINOPHILS # (AUTO) 0.4 10^3/uL (0.0-0.7); EOSINOPHILS % (AUTO) 7.8 %; HGB - HEMOGLOBIN 8.7 g/dL (12.0-16.0); LYMPHOCYTES # (AUTO) 0.8 10^3/uL (1.5-3.5); LYMPHOCYTES % (AUTO) 15.9 %; MEAN CORPUSCULAR HEMOGLOBIN 27.7 pg (27.0-31.0); MEAN CORPUSCULAR HGB CONC 31.8 g/dL (32.0-36.0); MEAN CORPUSCULAR VOLUME 87.3 fL (81.0-99.0); MEAN PLATELET VOLUME 9.4 fL (7.9-10.8); MONOCYTES # (AUTO) 0.6 10^3/uL (0.0-1.0); MONOCYTES % (AUTO) 11.7 %; PLT - PLATELET COUNT 368 10^3/uL (130-450); RED BLOOD COUNT 3.14 10^6/uL (4.20-5.40); RED CELL DISTRIBUTION WIDTH 15.7 % (12.0-15.0); WHITE BLOOD COUNT 4.8 x10^3/uL (4.8-10.8)
--- NOTE | 2020-09-03 14:26 | ANESTHESIA POST OP EVALUATION ---
Anesthesia Post Eval - Post Anesthesia Eval Vitals: Last Vital Signs Temp 36.9 C 09/03/20 14:04 Pulse 87 09/03/20 14:04 Resp 18 09/03/20 14:15 BP 159/7 H 09/03/20 14:04 Pulse Ox 93 09/03/20 14:15 CV Function Including HR & BP: positive: Stable Pain Control: positive: Satisfactory Nausea & Vomiting: positive: Negative Mental Status: positive: Baseline Respiratory Status: Airway Patent Hydration Status: Satisfactory Anesthesia Complications: positive: None
--- NOTE | 2020-09-03 14:52 | PROVIDER PROGRESS NOTE ---
Assessment/Plan - Problem List (1) Severe anemia Assessment/Plan: 113,Patient was found to have severe anemia in the admission. Hemoglobin was 4.3. After the patient had a 3 units of blood transfusion, Hemoglobin is 8.7 now. Iron studies show patient had a severe iron deficiency, patient was give intravenous iron, continue oral iron. EGD also found the patient had a large ulcer in the gastric but not at acute bleeding now. Patient scheduled Protonix PO Twice daily. Continue H&H overnight monitor patient. if patient hemoglobin is stable, has no GI bleed, we plan to discharge patient tomorrow (2)gastric ulcer EGD by GI surgeon also found the patient had a large ulcer in the gastric but not at acute bleeding now. pt is on PPI, and carafate. per surgeon, advise pt followup with GI surgeon 4-6 weeks (2) Depression Patient is on amitriptyline (3) Hypertension stable, continue home losartan for now (4) Chronic pain disorder Conclusion/Plan: continue Patient is on gabapentin and amitriptyline. advise pt hold Aleve in the home. - Current Meds Current Meds: Current Medications Generic Name Dose Route Start Last Admin Trade Name Freq PRN Reason Stop Dose Admin Baclofen 10 mg 09/02/20 23:00 09/03/20 05:46 Lioresal PO 10 mg TID DIEGO Administration Potassium Chloride/Dextrose/Sod Cl 1,000 mls @ 83.3 mls/hr 09/03/20 14:33 09/03/20 14:46 D5.45ns W/20 Meq Kcl IV 09/04/20 02:33 83.3 mls/hr .Q12H1M DIEGO Administration Nystatin 1 applic 09/02/20 23:00 09/03/20 09:12 Nystop TOP 1 applic BID DIEGO Administration Oxymetazoline HCl 2 sprays 09/02/20 22:15 09/03/20 11:51 Afrin TAYLER 2 spr BID PRN Administration Nasal Congestion Pantoprazole Sodium 40 mg 09/03/20 10:15 09/03/20 10:56 Protonix PO 40 mg BIDAC DIEGO Administration - Lab Result Fish Bone Diagrams: 09/03/20 14:17 09/03/20 05:15 - Additional Planning My Orders: My Active Orders 09/03/20 General Surgery Consult [CONS] Routine Evaluate and Treat OT [OT] Routine Evaluate and Treat PT [PT] Routine 09/03/20 09:17 traZODone [Desyrel] 50 mg PO QPM PRN 09/03/20 10:15 Pantoprazole [Protonix] 40 mg PO BIDAC 09/03/20 Lunch Soft (Low Fiber) Diet [DIET] 09/03/20 14:00 Gabapentin [Neurontin] 800 mg PO TID 09/03/20 14:33 D5.45ns W/20 Meq KCl 1,000 ml IV 83.3 mls/hr 09/03/20 17:00 Ferrous Sulfate [Feosol] 325 mg PO BIDWM 09/03/20 21:00 H&H [HEMOGLOBIN AND HEMATOCRIT] [HEME] Timed Amitriptyline [Elavil] 100 mg PO QPM QUEtiapine [SEROquel] 25 mg PO QPM Subjective - Subjective Patient Reports: Feeling Better Objective Vital Signs: Vital Signs - 24 hr 09/02/20 09/02/20 09/02/20 15:05 15:07 15:40 Temperature 36.6 C 36.6 C 36.7 C Heart Rate 90 88 Heart Rate [ Activity] Heart Rate [ Brachial] Heart Rate [ 89 Monitoring electrodes] Heart Rate [ Sitting] Respiratory 22 20 20 Rate Blood Pressure 128/62 128/64 Blood Pressure [Activity] Blood Pressure [Left Brachial artery] Blood Pressure 127/53 L [Left Radial artery] Blood Pressure [Sitting] O2 Saturation 99 O2 Saturation [ Activity] O2 Saturation [ Sitting] 09/02/20 09/02/20 09/02/20 17:53 18:14 18:29 Temperature 36.4 C L 36.5 C 36.5 C Heart Rate 88 79 79 Heart Rate [ Activity] Heart Rate [ Brachial] Heart Rate [ Monitoring electrodes] Heart Rate [ Sitting] Respiratory 19 18 19 Rate Blood Pressure 108/53 L 98/49 L 115/51 L Blood Pressure [Activity] Blood Pressure [Left Brachial artery] Blood Pressure [Left Radial artery] Blood Pressure [Sitting] O2 Saturation O2 Saturation [ Activity] O2 Saturation [ Sitting] 09/02/20 09/02/20 09/02/20 20:01 21:20 21:49 Temperature 36.9 C 36.4 C L 37 C Heart Rate 88 78 Heart Rate [ Activity] Heart Rate [ 86 Brachial] Heart Rate [ Monitoring electrodes] Heart Rate [ Sitting] Respiratory 20 24 21 Rate Blood Pressure 102/86 H 136/75 H Blood Pressure [Activity] Blood Pressure 143/71 H [Left Brachial artery] Blood Pressure [Left Radial artery] Blood Pressure [Sitting] O2 Saturation 97 O2 Saturation [ Activity] O2 Saturation [ Sitting] 09/02/20 09/02/20 09/03/20 22:04 23:59 01:07 Temperature 36.8 C 36.7 C 36.7 C Heart Rate 89 88 Heart Rate [ Activity] Heart Rate [ 80 88 Brachial] Heart Rate [ Monitoring electrodes] Heart Rate [ Sitting] Respiratory 21 20 18 Rate Blood Pressure 141/70 H 140/90 H Blood Pressure [Activity] Blood Pressure 143/80 H 140/90 H [Left Brachial artery] Blood Pressure [Left Radial artery] Blood Pressure [Sitting] O2 Saturation 99 97 O2 Saturation [ Activity] O2 Saturation [ Sitting] 09/03/20 09/03/20 09/03/20 05:00 07:45 11:17 Temperature 36.4 C L 36.6 C 36.9 C Heart Rate Heart Rate [ Activity] Heart Rate [ 84 87 88 Brachial] Heart Rate [ Monitoring electrodes] Heart Rate [ Sitting] Respiratory 20 18 18 Rate Blood Pressure Blood Pressure [Activity] Blood Pressure 148/66 H 160/74 H 144/77 H [Left Brachial artery] Blood Pressure [Left Radial artery] Blood Pressure [Sitting] O2 Saturation 94 93 95 O2 Saturation [ Activity] O2 Saturation [ Sitting] 09/03/20 09/03/20 09/03/20 12:57 14:04 14:15 Temperature 36.9 C Heart Rate Heart Rate [ 89 Activity] Heart Rate [ 87 Brachial] Heart Rate [ Monitoring electrodes] Heart Rate [ 83 Sitting] Respiratory 16 18 Rate Blood Pressure Blood Pressure 144/83 H [Activity] Blood Pressure 159/7 H [Left Brachial artery] Blood Pressure [Left Radial artery] Blood Pressure 137/95 H [Sitting] O2 Saturation 93 93 O2 Saturation [ 99 Activity] O2 Saturation [ 97 Sitting] Oxygen O2 Source [With Activity] Nasal cannula O2 Source [Without Activity] Nasal cannula O2 Source Room air I&O (Last 24 Hrs): Intake and Output Totals x24h 09/01/20 09/02/20 09/03/20 23:59 23:59 23:59 Intake Total 1235 1130.000 Output Total 1000 2325 Balance 235 -1195.000 General: Alert, Oriented x3, No acute distress HEENT: Atraumatic Neck: Supple Lymphatic: no adenopathy Neuro: Alert, Non Focal, Oriented Times 3 Cardiovascular: Regular rate, Normal S1, Normal S2 Respiratory: Chest non-tender, No respiratory distress Abdomen: Normal bowel sounds, Soft, No tenderness Extremities: Normal pulses - Results Results: Laboratory Results WBC 4.8 x10^3/uL (4.8-10.8) 09/03/20 14:17 RBC 3.14 10^6/uL (4.20-5.40) L 09/03/20 14:17 Hgb 8.7 g/dL (12.0-16.0) L 09/03/20 14:17 Hct 27.4 % (37.0-47.0) L 09/03/20 14:17 MCV 87.3 fL (81.0-99.0) 09/03/20 14:17 MCH 27.7 pg (27.0-31.0) 09/03/20 14:17 MCHC 31.8 g/dL (32.0-36.0) L 09/03/20 14:17 RDW 15.7 % (12.0-15.0) H 09/03/20 14:17 Plt Count 368 10^3/uL (130-450) 09/03/20 14:17 MPV 9.4 fL (7.9-10.8) 09/03/20 14:17 Neut # (Auto) 3.0 10^3/uL (1.5-6.6) 09/03/20 14:17 Lymph # (Auto) 0.8 10^3/uL (1.5-3.5) L 09/03/20 14:17 [place] # (Auto) 0.6 10^3/uL (0.0-1.0) 09/03/20 14:17 Eos # (Auto) 0.4 10^3/uL (0.0-0.7) 09/03/20 14:17 Baso # (Auto) 0.0 10^3/uL (0.0-0.1) 09/03/20 14:17 Absolute Nucleated RBC 0.03 x10^3/uL 09/03/20 14:17 Nucleated RBC % 0.6 /100WBC 09/03/20 14:17 Sodium 143 mmol/L (135-145) 09/03/20 05:15 Potassium 3.9 mmol/L (3.5-5.0) 09/03/20 05:15 Chloride 110 mmol/L (101-111) 09/03/20 05:15 Carbon Dioxide 22 mmol/L (21-32) 09/03/20 05:15 Anion Gap 11.0 (6-13) 09/03/20 05:15 BUN 15 mg/dL (6-20) 09/03/20 05:15 Creatinine 0.7 mg/dL (0.4-1.0) 09/03/20 05:15 Estimated GFR (MDRD) 81 (>89) L 09/03/20 05:15 Glucose 95 mg/dL (70-100) 09/03/20 05:15 Calcium 9.2 mg/dL (8.5-10.3) 09/03/20 05:15 Iron < 6 ug/dL (28-170) L 09/02/20 12:55 TIBC 377 ug/dL (250-450) 09/02/20 12:55 Transferrin 269 mg/dL (192-382) 09/02/20 12:55 Total Bilirubin 0.5 mg/dL (0.2-1.0) 09/02/20 12:55 AST 18 IU/L (10-42) 09/02/20 12:55 ALT 12 IU/L (10-60) 09/02/20 12:55 Alkaline Phosphatase 62 IU/L (42-121) 09/02/20 12:55 Troponin I High Sens 4.4 ng/L (2.3-14.8) 09/02/20 12:55 B-Natriuretic Peptide 122 pg/mL (5-100) H 09/02/20 12:55 Total Protein 6.4 g/dL (6.7-8.2) L 09/02/20 12:55 Albumin 3.1 g/dL (3.2-5.5) L 09/02/20 12:55 Globulin 3.3 g/dL (2.1-4.2) 09/02/20 12:55 Albumin/Globulin Ratio 0.9 (1.0-2.2) L 09/02/20 12:55 SARS-CoV-2 (PCR) NOT DETECTED 09/02/20 14:45 Blood Type O POSITIVE 09/02/20 13:35 Antibody Screen NEGATIVE 09/02/20 13:35 Crossmatch IS Only See Detail 09/02/20 13:35 - Procedures Procedures: Procedures TRANSFUSE NONAUT RED BLOOD CELLS IN PERIPH VEIN, PERC (05/17/16) ABX Reporting Has patient been on IV antibiotics over the past 48 hours?: No Current Medications - Current Medications Current Medications: Active Medications Amitriptyline HCl (Elavil) 100 mg PO QPM [facility] Baclofen (Lioresal) 10 mg PO TID [facility] Last Admin: 09/03/20 14:55 Dose: 10 mg Documented by: Ferrous Sulfate (Feosol) 325 mg PO BIDWM DIEGO Gabapentin (Neurontin) 800 mg PO TID [facility] Last Admin: 09/03/20 14:55 Dose: 800 mg Documented by: Losartan Potassium (Cozaar) 50 mg PO DAILY [facility] Nystatin (Nystop) 1 applic TOP BID [facility] Last Admin: 09/03/20 09:12 Dose: 1 applic Documented by: Oxymetazoline HCl (Afrin) 2 sprays TAYLER BID PRN PRN Reason: Nasal Congestion Last Admin: 09/03/20 11:51 Dose: 2 spr Documented by: Pantoprazole Sodium (Protonix) 40 mg PO BIDAC [facility] Last Admin: 09/03/20 15:52 Dose: 40 mg Documented by: Quetiapine Fumarate (Seroquel) 25 mg PO QPM [facility] Sucralfate (Carafate) 1 gm PO 0700,1100,1600,2200 [facility] Trazodone HCl (Desyrel) 50 mg PO QPM PRN PRN Reason: Insomnia Baclofen 10 mg PO TID PRN 09/23/18 Ferrous Gluconate 324 mg PO DAILY 09/23/18 QUEtiapine [SEROquel] 25 mg PO QPM 09/23/18 Amitriptyline HCl 100 mg PO QPM 09/02/20 Gabapentin [Neurontin] 800 mg PO TID 09/02/20 Losartan [Cozaar] 50 mg PO DAILY 09/02/20 Trazodone HCl 50 - 100 mg PO QPM PRN 09/02/20
[2020-09-03] MEDS: FERROUS SULFATE 325 MG TABLET PO SCH (17:27)
[2020-09-03] MEDS ORDERED: QUEtiapine 25 MG TABLET PO SCH (21:00)
[2020-09-03] MEDS ORDERED: AMITRIPTYLINE 25 MG TABLET PO SCH (21:00)
[2020-09-03 21:19] LABS: HGB - HEMOGLOBIN 8.6 g/dL (12.0-16.0)
[2020-09-03] MEDS: SUCRALFATE 1 GM/10 ML UDC PO SCH (22:13)
[2020-09-04] MEDS: BACLOFEN 10 MG TABLET PO SCH ×2 (05:09→13:50)
[2020-09-04] MEDS: GABAPENTIN 400 MG CAPSULE PO SCH ×2 (05:12→13:50)
[2020-09-04 05:22] LABS: BASOPHILS # (AUTO) 0.1 10^3/uL (0.0-0.1); BASOPHILS % (AUTO) 0.9 %; EOSINOPHILS # (AUTO) 0.5 10^3/uL (0.0-0.7); EOSINOPHILS % (AUTO) 8.6 %; HGB - HEMOGLOBIN 8.5 g/dL (12.0-16.0); LYMPHOCYTES % (AUTO) 16.7 %; MEAN CORPUSCULAR HEMOGLOBIN 27.2 pg (27.0-31.0); MEAN CORPUSCULAR VOLUME 87.5 fL (81.0-99.0); MEAN PLATELET VOLUME 9.8 fL (7.9-10.8); MONOCYTES # (AUTO) 0.8 10^3/uL (0.0-1.0); MONOCYTES % (AUTO) 12.9 %; NEUTROPHILS # (AUTO) 3.5 10^3/uL (1.5-6.6); NEUTROPHILS % (AUTO) 60.4 %; PLT - PLATELET COUNT 367 10^3/uL (130-450); RED BLOOD COUNT 3.13 10^6/uL (4.20-5.40); RED CELL DISTRIBUTION WIDTH 15.9 % (12.0-15.0); WHITE BLOOD COUNT 5.8 x10^3/uL (4.8-10.8)
[2020-09-04 05:30] LABS: CALCIUM 8.7 mg/dL (8.5-10.3); CREATININE 0.7 mg/dL (0.4-1.0)
[2020-09-04] MEDS: PANTOPRAZOLE 40 MG TABLET PO SCH (06:12)
[2020-09-04] MEDS: SUCRALFATE 1 GM/10 ML UDC PO SCH ×2 (06:12→10:45)
[2020-09-04] MEDS ORDERED: BACLOFEN 10 MG TABLET PO PRN (08:15)
[2020-09-04] MEDS ORDERED: LOSARTAN 50 MG TABLET PO SCH (09:00)
[2020-09-04] MEDS ORDERED: BACLOFEN 10 MG TABLET PO ONE (09:00)
[2020-09-04] MEDS ORDERED: GABAPENTIN 400 MG CAPSULE PO ONE (09:00)
[2020-09-04] MEDS: FERROUS SULFATE 325 MG TABLET PO SCH (09:10)
[2020-09-04] MEDS: NYSTATIN POWDER 15 GM TOP SCH (09:12)
[2020-09-04] MEDS ORDERED: FLU VACC QS2020-21(6MOS UP)/PF 60 MCG/0.5 ML SYRINGE IM ONE (10:21)
--- NOTE | 2020-09-04 11:10 | Discharge Plan ---
Discharge Plan Problem Reviewed?: Yes Disposition: Home, Self Care Condition: Stable Prescriptions: Sucralfate [Carafate] 1 gm PO TID #90 tablet Omeprazole 40 mg PO BID #60 capsule. Diet: Regular Activity Restrictions: Activity as Tolerated Shower Restrictions: No (fall precaution) Instruction Topics: Omeprazole tablets OTC, Sucralfate tablets, Bleeding Gastrointestinal, Anemia Iron Deficiency [facility] Concerns: GI bleed, anemia Plan of Treatment: you had EGD done at hospital, you are found to have gastric ulcer, you are prescribed omeprazole, Carafate. advise you hold NSAIDs such as ibuprofen, Aspirin now, hold your Aleve, followup with your GI surgeon Dr. Tomas in 4-6 week, followup with your PCP in one week to recheck HGB. You are also found to have severe iron deficiency, you were given IV of iron in hospital, continue your home iron pill, followup with your PCP continue manage. Care Goals: stabilization and improvement of your medical conditions Assessment: discussed the care plan with you, you understood Additional Instructions or Follow Up instructions: You may followup with your PCP in one week, to have HGB check again, followup with GI surgeon in 4-6 weeks. Your GI surgeon will notify your gastric ulcer biopsy result. Should your symptoms return or worsen, you may present ER or call 911 for help. No Smoking: If you smoke, Please STOP! Call for help. Follow-up with: MILO HERNÁNDEZ PA-C [Primary Care Provider] -
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
[2020-09-04 12:50] VITALS: BP 135/65
== END 2020-09-04 14:15 | disposition home or self-care (01) | DRG 811 ==
LOC: ED 12:08 → MS2 14:51
PROVIDERS: ADMIT Internal Medicine; ATTEND Nurse Practitioner Gerontology
PROC: 0DB68ZX Excision of Stomach, Via Natural or Artificial Opening Endoscopic, Diagnostic (ICD-10-PCS; principal; 2020-09-02)
PROC: 30233N1 Transfusion of Nonautologous Red Blood Cells into Peripheral Vein, Percutaneous Approach (ICD-10-PCS; 2020-09-02)
DX: D50.9 Iron deficiency anemia, unspecified (principal); K25.4 Chronic or unspecified gastric ulcer with hemorrhage; K44.9 Diaphragmatic hernia without obstruction or gangrene; F32.9 Major depressive disorder, single episode, unspecified; I10 Essential (primary) hypertension; K21.9 Gastro-esophageal reflux disease without esophagitis; D64.9 Anemia, unspecified; G89.29 Other chronic pain; J18.9 Pneumonia, unspecified organism; R06.00 Dyspnea, unspecified; M54.5 Low back pain; M79.7 Fibromyalgia; R20.2 Paresthesia of skin; M48.02 Spinal stenosis, cervical region; Z66 Do not resuscitate; Z87.11 Personal history of peptic ulcer disease; Z89.512 Acquired absence of left leg below knee; Z79.899 Other long term (current) drug therapy; Z79.1 Long term (current) use of non-steroidal anti-inflammatories (NSAID); Z87.01 Personal history of pneumonia (recurrent); Z87.442 Personal history of urinary calculi; Z91.5 Personal history of self-harm; Z91.81 History of falling; R20.0 Anesthesia of skin; Z20.828 Contact with and (suspected) exposure to other viral communicable diseases
CPT/HCPCS: 36415; 43239; 70450; 71275; 72125; 80048; 80053; 82272; 83540; 83880; 84466; 84484; 85014; 85018; 85025; 86850; 86900; 86901; 86920; 87081; 93005; 97161; 97165; 99285; A9270; J2916; P9016; Q9967; U0004; 90686

== ENCOUNTER 2020-09-10 15:22 | Outpatient (CLI) | payer MEDICARE, MEDICAID ==
[2020-09-10 20:34] LABS: BASOPHILS # (AUTO) 0.1 10^3/uL (0.0-0.1); EOSINOPHILS # (AUTO) 0.4 10^3/uL (0.0-0.7); EOSINOPHILS % (AUTO) 5.2 %; HGB - HEMOGLOBIN 9.6 g/dL (12.0-16.0); LYMPHOCYTES # (AUTO) 1.1 10^3/uL (1.5-3.5); LYMPHOCYTES % (AUTO) 16.1 %; MEAN CORPUSCULAR HEMOGLOBIN 27.1 pg (27.0-31.0); MEAN CORPUSCULAR HGB CONC 28.7 g/dL (32.0-36.0); MEAN CORPUSCULAR VOLUME 94.6 fL (81.0-99.0); MEAN PLATELET VOLUME 10.8 fL (7.9-10.8); MONOCYTES # (AUTO) 0.7 10^3/uL (0.0-1.0); MONOCYTES % (AUTO) 9.4 %; NEUTROPHILS # (AUTO) 4.8 10^3/uL (1.5-6.6); NEUTROPHILS % (AUTO) 68.2 %; PLT - PLATELET COUNT 323 10^3/uL (130-450); RED BLOOD COUNT 3.54 10^6/uL (4.20-5.40); WHITE BLOOD COUNT 7.1 x10^3/uL (4.8-10.8)
[2020-09-10 20:44] LABS: ALBUMIN 3.5 g/dL (3.2-5.5); ALBUMIN/GLOBULIN RATIO 1.1 (1.0-2.2); BILIRUBIN,TOTAL 0.5 mg/dL (0.2-1.0); CALCIUM 9.2 mg/dL (8.5-10.3); CREATININE 0.9 mg/dL (0.4-1.0); TOTAL PROTEIN 6.8 g/dL (6.7-8.2)
[2020-09-10 20:58] LABS: FERRITIN 33.2 ng/mL (11.0-306.8)
[2020-09-10 21:01] LABS: FOLATE 20.34 ng/mL (5.90 - >24.8)
[2020-09-10 21:14] LABS: PLATELET ESTIMATE, MANUAL NORMAL (130-450,000) (NORMAL); PLATELET MORPHOLOGY NORMAL APPEARANCE (NORMAL)
== END 2020-09-10 15:23 | disposition home or self-care (01) ==
LOC: LAB.S 15:22
PROVIDERS: ATTEND Physician Assistant
DX: K21.9 Gastro-esophageal reflux disease without esophagitis (principal); D64.9 Anemia, unspecified
CPT/HCPCS: 36415; 80053; 82607; 82728; 82746; 83540; 84466; 85025

== ENCOUNTER 2023-06-24 11:24 | Emergency (ER) | payer MEDICARE, MEDICAID ==
[2023-06-24 12:09] VITALS: BP 181/105; O2SAT 99
--- NOTE | 2023-06-24 12:24 | ED Physician Documentation ---
History of Present Illness - Stated complaint Stated Complaint: VOMITING BLOOD - Chief complaint Chief Complaint: Abd Pain - History obtained from History obtained from: Patient - History of Present Illness Timing: How many days ago (2) Pain level max: 3 Pain level now: 3 - Additonal information Additional information: Patient is an 83-year-old female who presents to the emergency department stating that she has had vomiting for the past 2 days. She states initially there was dark blood in her emesis. She states that this has since improved. She states that after she had been vomiting, she notice a hole under her tongue that was bleeding. She states that she called her dentist and was referred here for evaluation. She states that she has had a gastric ulcer in the past. She states that she does take medicine for this but does not know which one. She states that she has had some abdominal cramping but not having pain currently. No fevers. No chills. She is not on blood thinners. She states that she has not been using any anti-inflammatory medications. Has not had a recent endoscopy. Does not feel lightheaded, dizzy. Does not have any chest pain. No active nausea or vomiting currently. Review of Systems Constitutional: denies: Fever, Chills GI: denies: Vomiting, Diarrhea Skin: denies: Rash Musculoskeletal: denies: Neck pain, Back pain Neurologic: denies: Headache PD PAST MEDICAL HISTORY - Past Medical History Past Medical History: Yes Cardiovascular: None Respiratory: Pneumonia Neuro: Other (Paresthesias in rbynn hands) Endocrine/Autoimmune: None GI: GERD, GI bleed, Ulcers : Kidney stones HEENT: None Psych: Depression Musculoskeletal: Chronic back pain, Other (Cervical stenosis, multiple back surgeries, BKA) Derm: Rosacea - Past Surgical History Past Surgical History: Yes General: Cholecystectomy, Colonoscopy, EGD Ortho: Spine surgery (Back surgery with rods/cages), Amputation (Left BKA) Neuro: Other (s) - Present Medications Home Medications: Ambulatory Orders Medication Instructions Recorded Confirmed Baclofen 10 mg PO TID PRN 09/23/18 09/02/20 Ferrous Gluconate 324 mg PO DAILY 09/23/18 09/02/20 QUEtiapine [SEROquel] 25 mg PO QPM 09/23/18 09/02/20 Amitriptyline HCl 100 mg PO QPM 09/02/20 09/02/20 Gabapentin [Neurontin] 800 mg PO TID 09/02/20 09/02/20 Losartan [Cozaar] 50 mg PO DAILY 09/02/20 09/02/20 Trazodone HCl 50 - 100 mg PO QPM PRN 09/02/20 09/02/20 Omeprazole 40 mg PO BID #60 capsule. 09/04/20 Sucralfate [Carafate] 1 gm PO TID #90 tablet 09/04/20 Omeprazole 40 mg PO DAILY #90 capsule. 10/29/20 Chlorhexidine Gluconate [Peridex] 15 ml MM BID #118 ml 06/24/23 Esomeprazole Magnesium [Nexium] 40 mg PO DAILY #30 cap 06/24/23 Ondansetron Odt [Zofran] 4 mg TL Q6H PRN #10 tablet 06/24/23 - Allergies Allergies/Adverse Reactions: Allergies Allergy/AdvReac Type Severity Reaction Status Date / Time No Known Drug Allergies Allergy Verified 06/24/23 11:52 - Social History Does the pt smoke?: No Smoking Status: Never smoker Does the pt drink ETOH?: No Does the pt have substance abuse?: No - Immunizations Immunizations are current?: Yes - POLST Patient has POLST: No POLST Status: DNR PD ED PE NORMAL - Vitals Vital signs reviewed: Yes - General General: Alert and oriented X 3, No acute distress - HEENT HEENT: PERRL, Moist mucous membranes, Other (There is a healing laceration under the right side of the tongue. No active bleeding.) - Neck Neck: Supple, no meningeal sign - Cardiac Cardiac: RRR, Strong equal pulses - Respiratory Respiratory: No respiratory distress, Clear bilaterally - Abdomen Abdomen: Soft, Non tender, Non distended - Derm Derm: Warm and dry, No rash - Extremities Extremities: No edema - Neuro Neuro: Alert and oriented X 3 - Psych Psych: Normal mood, Normal affect Results - Vitals Vitals: Vital Signs - 24 hr 06/24/23 11:49 Temperature 36 C L Heart Rate 104 H Respiratory 16 Rate Blood Pressure 181/105 H O2 Saturation 99 Oxygen O2 Source [With Activity] Nasal cannula O2 Source [Without Activity] Nasal cannula O2 Source Room air - Labs Labs: Laboratory Tests 06/24/23 06/24/23 06/24/23 12:32 12:32 13:04 WBC 6.4 RBC 4.39 Hgb 14.0 Hct 42.4 MCV 96.6 MCH 31.9 H MCHC 33.0 RDW 12.0 Plt Count 220 MPV 10.0 Neut # (Auto) 4.2 Lymph # (Auto) 1.5 [place] # (Auto) 0.6 Eos # (Auto) 0.1 Baso # (Auto) 0.0 Absolute Nucleated RBC 0.00 Nucleated RBC % 0.0 PT 11.6 INR 1.1 APTT 27.9 Sodium 139 Potassium 3.6 Chloride 100 L Carbon Dioxide 32 Anion Gap 7.0 BUN 21 H Creatinine 0.6 Estimated GFR (MDRD) 96 Glucose 94 Calcium 10.3 Total Bilirubin 1.0 AST 19 ALT 14 Alkaline Phosphatase 52 Total Protein 7.1 Albumin 4.4 Globulin 2.7 Albumin/Globulin Ratio 1.6 Lipase 12 PD Medical Decision Making - ED course Complexity details: reviewed results, re-evaluated patient (Patient is not bernabe ving any abdominal pain), considered differential, d/w patient, d/w family ED course: 83-year-old female with what appears to have been a laceration under the right side of the tongue. This appears to be likely a few days old. Appears to be healing. No signs of infection. No active bleeding. She was given IV fluids and Zofran no longer has any nausea. PoorTolerating p.o. without difficulty. No significant lab abnormalities. No hematemesis here. Likely of the hematemesis was from the tongue laceration as she was swallowing the blood. Abdomen is soft, nontender nondistended. No significant vital sign abnormalities. We will have her follow-up with her PCP for further care. Patient counseled regarding signs and symptoms for which I believe and urgent re-evaluation would be necessary. Patient with good understanding of and agreement to plan and is comfortable going home at this time This document was made in part using voice recognition software. While efforts are made to proofread this document, sound alike and grammatical errors may occur. Heart rate at the time of discharge was 84 Departure - Departure Disposition: 01 Home, Self Care Clinical Impression: Intraoral laceration Qualifiers: Encounter type: initial encounter Qualified Code(s): S01.512A - Laceration without foreign body of oral cavity, initial encounter Vomiting Qualifiers: Vomiting type: unspecified Nausea presence: with nausea Qualified Code(s): R11.2 - Nausea with vomiting, unspecified Condition: Good Instructions: ED Laceration Mouth, ED Nausea Vomiting Follow-Up: your,doctor in 3 days [Other] Prescriptions: Esomeprazole Magnesium [Nexium] 40 mg PO DAILY #30 cap Chlorhexidine Gluconate [Peridex] 15 ml MM BID #118 ml Ondansetron Odt [Zofran] 4 mg TL Q6H PRN #10 tablet PRN Reason: Nausea / Vomiting Comments: Please follow-up with your doctor for further care. It is important that you have your blood counts rechecked next week with your doctor. Please take the medications as prescribed for you. Please make sure to follow-up with your dentist within a few days to check on the healing of the laceration under your tongue. Use the chlorhexidine rinse twice daily. You should eat a soft diet and mainly liquids for the next 24 to 48 hours as the wound heals. Your prescription[facility] were sent to [facility] in [place]. Forms: PCP List Discharge Date/Time: 06/24/23 14:47
[2023-06-24 12:45] LABS: BASOPHILS % (AUTO) 0.5 %; EOSINOPHILS # (AUTO) 0.1 10^3/uL (0.0-0.7); EOSINOPHILS % (AUTO) 1.3 %; HCT - HEMATOCRIT 42.4 % (37.0-47.0); LYMPHOCYTES # (AUTO) 1.5 10^3/uL (1.5-3.5); LYMPHOCYTES % (AUTO) 22.9 %; MEAN CORPUSCULAR HEMOGLOBIN 31.9 pg (27.0-31.0); MEAN CORPUSCULAR VOLUME 96.6 fL (81.0-99.0); MONOCYTES # (AUTO) 0.6 10^3/uL (0.0-1.0); MONOCYTES % (AUTO) 8.6 %; NEUTROPHILS # (AUTO) 4.2 10^3/uL (1.5-6.6); NEUTROPHILS % (AUTO) 66.4 %; PLT - PLATELET COUNT 220 10^3/uL (130-450); RED BLOOD COUNT 4.39 10^6/uL (4.20-5.40); WHITE BLOOD COUNT 6.4 x10^3/uL (4.8-10.8)
[2023-06-24 13:02] LABS: INR 1.1 (0.8-1.2); PT - PROTHROMBIN TIME 11.6 secs (9.9-12.6)
[2023-06-24 13:09] LABS: PARTIAL THROMBOPLASTIN TIME 27.9 secs (24.9-33.3)
[2023-06-24 13:23] LABS: ALBUMIN 4.4 g/dL (3.2-5.5); ALBUMIN/GLOBULIN RATIO 1.6 (1.0-2.2); CALCIUM 10.3 mg/dL (8.5-10.3); CREATININE 0.6 mg/dL (0.6-1.3); POTASSIUM 3.6 mmol/L (3.5-4.5); TOTAL PROTEIN 7.1 g/dL (6.4-8.9)
[2023-06-24] MEDS ORDERED: SODIUM CHLORIDE 0.9% 1,000 ML IV STA (13:36)
[2023-06-24] MEDS ORDERED: ONDANSETRON 4 MG/2 ML VIAL IVP STA (13:36)
== END 2023-06-24 14:47 | disposition home or self-care (01) ==
LOC: ED 11:24
DX: S01.512A Laceration without foreign body of oral cavity, initial encounter (principal); X58.XXXA Exposure to other specified factors, initial encounter; R11.2 Nausea with vomiting, unspecified; Z79.899 Other long term (current) drug therapy
CPT/HCPCS: 36415; 80053; 83690; 85025; 85610; 85730; 96374; 99283